=== PATIENT | male | born 1945 | race Caucasian/White ===

== ENCOUNTER → 2022-03-29 09:26 | Outpatient (CLI) | payer MEDICARE, SELFPAY ==
[2022-03-29 19:52] LABS: Alanine Aminotransferase 38 U/L (12-78); Albumin Level 4.8 g/dl (3.5-5.0); Albumin/Globulin Ratio 1.7 (1.1-1.8); Alkaline Phosphatase 112 U/L (38-126); Anion Gap 2.5 mEq/L (5-15); Aspartate Amino Transferase 38 U/L (17-59); Bilirubin,Total 0.8 mg/dl (0.2-1.3); Blood Urea Nitrogen 14 mg/dl (9-20); Calcium 9.7 mg/dl (8.4-10.2); Carbon Dioxide 28 mmol/L (22.0-30.0); Chloride 103 mmol/L (98-107); Chol/HDL Ratio 5.7 (1-3.5); Cholesterol 222 mg/dl (140-200); Estimated Glomerular Filt Rate 73 ml/min (>60); GFR (African American) 88 ML/MIN (>60); Globulin 2.8 g/dL (1.3-3.2); Glucose 104 mg/dl (74-100); HDL Cholesterol 39 mg/dl (40-60); Potassium 4.5 mmoL/L (3.5-5.1); Sodium 129 mmol/L (136-145); Total Protein,Serum 7.6 g/dl (6.3-8.2); Triglycerides 177 mg/dl (30-150); VLDL Cholesterol 35 mg/dL (0-40)
[2022-03-29 20:03] LABS: Direct LDL Cholesterol 148.73 mg/dL (100-129)
[2022-03-29 20:24] LABS: Prostate Specific Ag, Diagnost 10.8 ng/ml (0.0-4.0)
== END ==
PROVIDERS: PCP Family Medicine; Visit Provider Family Medicine
DX: N52.9 Male erectile dysfunction, unspecified (principal); Z12.5 Encounter for screening for malignant neoplasm of prostate; Z79.899 Other long term (current) drug therapy; R97.20 Elevated prostate specific antigen [PSA]
CPT/HCPCS: 80053; 80061; 84153

== ENCOUNTER → 2023-03-29 23:22 | Outpatient (CLI) | payer MEDICARE, SELFPAY ==
[2023-03-29 18:40] LABS: Basophils % 0.3 % (0.1-2.0); Eosinophils # 0.2 K/mm3 (0.0-0.4); Eosinophils % 3.1 % (0.1-12.0); Hematocrit 47.4 % (42.0-52.0); Hemoglobin 15.8 g/dL (14.1-18.0); Lymphocytes # 1.9 K/mm3 (0.7-4.5); Lymphocytes % 39.1 % (10-50); Mean Corpuscular HGB Conc 33.4 g/dL (31.8-35.4); Mean Corpuscular Hemoglobin 32.9 pg (27.0-31.2); Mean Corpuscular Volume 98.6 fl (80-94); Mean Platelet Volume 9.2 fl (7.4-10.4); Monocytes # 0.3 K/mm3 (0.1-1.0); Monocytes % 6.2 % (1.7-9.3); Neutrophils # 2.5 K/mm3 (1.8-7.8); Neutrophils % 51.3 % (37.0-80.0); Platelet Count 193 K/mm3 (142-424); Red Cell Distribution Width 12.9 % (11.5-17.5); White Blood Count 4.9 K/mm3 (4.8-10.8)
[2023-03-29 18:51] LABS: Alanine Aminotransferase 34 U/L (12-78); Albumin Level 4.9 g/dl (3.5-5.0); Albumin/Globulin Ratio 1.6 (1.1-1.8); Alkaline Phosphatase 78 U/L (38-126); Anion Gap 13.8 mEq/L (5-15); Aspartate Amino Transferase 37 U/L (17-59); Bilirubin,Total 0.7 mg/dl (0.2-1.3); Blood Urea Nitrogen 17 mg/dl (9-20); Calcium 9.1 mg/dl (8.4-10.2); Carbon Dioxide 27 mmol/L (22.0-30.0); Chloride 102 mmol/L (98-107); Chol/HDL Ratio 6.2 (1-3.5); Cholesterol 255 mg/dl (140-200); Estimated Glomerular Filt Rate 73 ml/min (>60); GFR (African American) 88 ML/MIN (>60); Globulin 3.1 g/dL (1.3-3.2); Glucose 104 mg/dl (74-100); HDL Cholesterol 41 mg/dl (40-60); Potassium 4.8 mmoL/L (3.5-5.1); Sodium 138 mmol/L (136-145); Triglycerides 209 mg/dl (30-150); VLDL Cholesterol 42 mg/dL (0-40)
[2023-03-29 19:02] LABS: Direct LDL Cholesterol 159.49 mg/dL (100-129)
[2023-03-29 19:13] LABS: 25-OH Vitamin D, Total 69.4 ng/mL (30-100)
[2023-03-29 19:24] LABS: Thyroid Stimulating Hormone 2.68 uIU/mL (0.465-4.68)
[2023-03-29 19:42] LABS: Vitamin B12 526 pg/mL (239-931)
[2023-03-29 19:52] LABS: Hemoglobin A1C 5.6 % (4.0-6.0)
== END ==
PROVIDERS: PCP Nurse Practitioner; Visit Provider Nurse Practitioner
DX: N52.9 Male erectile dysfunction, unspecified (principal); E78.5 Hyperlipidemia, unspecified; E55.9 Vitamin D deficiency, unspecified; C61 Malignant neoplasm of prostate; Z79.899 Other long term (current) drug therapy
CPT/HCPCS: 80053; 80061; 82306; 82607; 83036; 84443; 85025

== ENCOUNTER 2023-05-25 10:26 | Outpatient (CLI) | payer MEDICARE, SELFPAY | END 2023-05-25 23:59 | LOC: LAB.DROPOF 05-27 10:27 | PROVIDERS: PCP Nurse Practitioner; Visit Provider Nurse Practitioner | DX: Z01.818 Encounter for other preprocedural examination (principal) | CPT/HCPCS: 80048; 85025 ==

== ENCOUNTER 2023-05-25 16:58 | Outpatient (CLI) | payer MEDICARE, SELFPAY ==
--- NOTE | 2023-05-25 17:13 | ECG_ITS ---
APPROVED REPORT Exam: Resting ECG HR:61 bpm ECG Measurements Heart Rate 61 AXES CO 155 P 48 QRSd 113 QRS 45 QT 381 T 138 QTc 384 Conclusion SINUS RHYTHM MODERATE T-WAVE ABNORMALITY, CONSIDER LATERAL ISCHEMIA [-0.1+ mV T-WAVE IN I/aVL/V5/V6] ABNORMAL ECG UNCONFIRMED REPORT Electronically signed by : Kameron Bates MD 05/25/2023 22:36:12
[2023-05-25 18:26] LABS: Basophils % 0.5 % (0.1-2.0); Eosinophils # 0.1 K/mm3 (0.0-0.4); Eosinophils % 1.2 % (0.1-12.0); Hemoglobin 14.7 g/dL (14.1-18.0); Lymphocytes # 2.3 K/mm3 (0.7-4.5); Lymphocytes % 36.2 % (10-50); Mean Corpuscular HGB Conc 34.3 g/dL (31.8-35.4); Mean Corpuscular Hemoglobin 33.2 pg (27.0-31.2); Mean Corpuscular Volume 96.8 fl (80-94); Mean Platelet Volume 8.5 fl (7.4-10.4); Monocytes # 0.5 K/mm3 (0.1-1.0); Monocytes % 7.9 % (1.7-9.3); Neutrophils # 3.5 K/mm3 (1.8-7.8); Neutrophils % 54.2 % (37.0-80.0); Platelet Count 215 K/mm3 (142-424); Red Blood Count 4.44 M/mm3 (4.60-6.20); White Blood Count 6.4 K/mm3 (4.8-10.8)
[2023-05-25 18:36] LABS: Anion Gap 12.4 mEq/L (5-15); Blood Urea Nitrogen 19 mg/dl (9-20); Calcium 9.3 mg/dl (8.4-10.2); Carbon Dioxide 27 mmol/L (22.0-30.0); Chloride 102 mmol/L (98-107); Estimated Glomerular Filt Rate 65 ml/min (>60); GFR (African American) 79 ML/MIN (>60); Glucose 111 mg/dl (74-100); Potassium 4.4 mmoL/L (3.5-5.1); Sodium 137 mmol/L (136-145)
== END 2023-05-25 23:59 ==
LOC: RT 17:01
PROVIDERS: PCP Nurse Practitioner; Visit Provider Neurological Surgery
DX: Z01.818 Encounter for other preprocedural examination (principal)
CPT/HCPCS: 80048; 85025; 93005

== ENCOUNTER 2023-05-30 14:19 | Outpatient (CLI) | payer MEDICARE, SELFPAY ==
--- NOTE | 2023-05-30 14:20 | CA_ITS ---
APPROVED REPORT EXAM: Comprehensive 2D, Doppler, and color-flow Echocardiogram Lithographic Printing Machinist: Tracy Sotelo RT(R) Ht: 5 ft 11 in Wt: 232lbs BSA: 2.25 BP: 151/85 mmHg Indications: PRE OP clearance for back/spine surgery, AFIB, prior ablation, CONTRERAS 2D Dimensions Left Atrium 3.45 cm M: 3.0 - 4.0 LA Volume 26.00 mL LVOT 1.96 cm (M/F) 1.5-2.5 LA Volume Index 11.56 mL/m2 (M/F) 16-34 EF AP4 45.50 % GL Strain -11.1 % M-Mode Dimensions RVDd 1.87 cm (0.9-2.6) LVDd 3.74 cm (3.5-5.7) Ao Diam 3.50 cm (2.0-3.7) LVDs 2.67 cm (3.5-5.7) IVSd 1.02 cm (0.6-1.1) PWd 0.98 cm (0.6-1.1) EF (Teich) 55.90% FS 28.60% EDV (Teich) 59.60 mL ESV (Teich) 26.30 mL LV Diastology E Decel Time 247 (160-240 msec) E/A Ratio 0.7 Mitral Valve MV E Max Markell. 67.0 (40-130 cm/s) MV A Velocity 102.0 (40-130 cm/s) E/A Ratio 0.65 MV Decel. Time 247 (160-240 ms) Left Ventricle The left ventricle is normal size. The left ventricular systolic function is normal. The left ventricular ejection fraction is within the normal range. There is normal left ventricular wall thickness. There is normal LV segmental wall motion. The left ventricular diastolic function is normal. LVEF is 55%. Right Ventricle The right ventricle is normal size. The right ventricular systolic function is normal. Atria The left atrium size is normal. The right atrium size is normal. There is no Doppler evidence of interatrial shunt. Aortic Valve The aortic valve is mildly thickened. Aortic sclerosis is present, but no evidence of aortic stenosis. Trace aortic regurgitation. Mitral Valve The mitral valve leaflets are mildly thickened. Trace mitral regurgitation. Tricuspid Valve The tricuspid valve leaflets are thin and pliable. Trace tricuspid regurgitation. There is insufficient TR jet to estimate RVSP. Pulmonic Valve The pulmonary valve is normal in structure. Trace pulmonic regurgitation. Great Vessels The aortic root is normal in size. The ascending aorta is not well-visualized. The IVC is not well-visualized. Pericardium There is no pericardial effusion. Other Information Study Quality: Technically Difficult Conclusion Technically difficult study due to poor acoustic windows. Normal biventricular systolic function. No significant valvular stenosis or regurgitation. Electronically signed by : Kathy Bruce MD 05/30/2023 22:40:21
== END 2023-05-30 23:59 ==
LOC: RT 14:20
PROVIDERS: PCP Nurse Practitioner; Visit Provider Physician Assistant
DX: R94.31 Abnormal electrocardiogram [ECG] [EKG] (principal); Z01.818 Encounter for other preprocedural examination
CPT/HCPCS: 93306

== ENCOUNTER 2023-06-27 18:22 | Outpatient (CLI) | payer MEDICARE, SELFPAY ==
[2023-06-27 18:06] LABS: Alanine Aminotransferase 29 U/L (12-78); Albumin Level 4.5 g/dl (3.5-5.0); Albumin/Globulin Ratio 1.7 (1.1-1.8); Alkaline Phosphatase 89 U/L (38-126); Anion Gap 12.7 mEq/L (5-15); Aspartate Amino Transferase 34 U/L (17-59); Bilirubin,Total 0.8 mg/dl (0.2-1.3); Blood Urea Nitrogen 12 mg/dl (9-20); Calcium 9.2 mg/dl (8.4-10.2); Carbon Dioxide 27 mmol/L (22.0-30.0); Chloride 103 mmol/L (98-107); Chol/HDL Ratio 7.2 (1-3.5); Cholesterol 275 mg/dl (140-200); Estimated Glomerular Filt Rate 82 ml/min (>60); GFR (African American) 100 ML/MIN (>60); Globulin 2.6 g/dL (1.3-3.2); Glucose 100 mg/dl (74-100); HDL Cholesterol 38 mg/dl (40-60); Potassium 4.7 mmoL/L (3.5-5.1); Sodium 138 mmol/L (136-145); Total Protein,Serum 7.1 g/dl (6.3-8.2); Triglycerides 187 mg/dl (30-150); VLDL Cholesterol 37 mg/dL (0-40)
[2023-06-27 18:17] LABS: Direct LDL Cholesterol 169.58 mg/dL (100-129)
== END 2023-06-27 23:59 ==
LOC: LAB.DROPOF 18:22
PROVIDERS: PCP Nurse Practitioner; Visit Provider Nurse Practitioner
DX: E78.5 Hyperlipidemia, unspecified (principal); Z79.899 Other long term (current) drug therapy
CPT/HCPCS: 80053; 80061

== ENCOUNTER 2023-11-21 16:15 | Outpatient (CLI) | payer MEDICARE, SELFPAY | END 2023-11-21 23:59 | disposition home or self-care (01) | LOC: LAB.DROPOF 11-22 16:15 | PROVIDERS: PCP Nurse Practitioner; Visit Provider Nurse Practitioner | DX: L02.212 Cutaneous abscess of back [any part, except buttock and flank] (principal); B95.61 Methicillin susceptible Staphylococcus aureus infection as the cause of diseases classified elsewhere | CPT/HCPCS: 87070; 87077; 87186; 87205 ==

== ENCOUNTER 2024-07-03 20:11 | Outpatient (CLI) | payer MEDICARE, SELFPAY ==
[2024-07-03 21:51] LABS: Basophils % 0.2 % (0.1-2.0); Eosinophils # 0.2 K/mm3 (0.0-0.4); Eosinophils % 3.1 % (0.1-12.0); Lymphocytes # 1.7 K/mm3 (0.7-4.5); Lymphocytes % 32.9 % (10-50); Mean Corpuscular HGB Conc 32.6 g/dL (31.8-35.4); Mean Corpuscular Hemoglobin 31.7 pg (27.0-31.2); Mean Corpuscular Volume 97.3 fl (80-94); Mean Platelet Volume 10.3 fl (7.4-10.4); Monocytes # 0.4 K/mm3 (0.1-1.0); Monocytes % 8.4 % (1.7-9.3); Neutrophils # 2.8 K/mm3 (1.8-7.8); Platelet Count 212 K/mm3 (142-424); Red Blood Count 4.42 M/mm3 (4.60-6.20); Red Cell Distribution Width 12.9 % (11.5-17.5); White Blood Count 5.1 K/mm3 (4.8-10.8)
[2024-07-03 22:57] LABS: Albumin Level 4.4 g/dl (3.5-5.0); Chloride 102 mmol/L (98-107); Sodium 134 mmol/L (136-145)
[2024-07-03 23:00] LABS: Alanine Aminotransferase 24 U/L (12-78); Albumin/Globulin Ratio 1.8 (1.1-1.8); Aspartate Amino Transferase 35 U/L (17-59); Blood Urea Nitrogen 23 mg/dl (9-20); Carbon Dioxide 26 mmol/L (22.0-30.0); Estimated Glomerular Filt Rate 82 ml/min (>60); GFR (African American) 99 ML/MIN (>60); Globulin 2.5 g/dL (1.3-3.2); Total Protein,Serum 6.9 g/dl (6.3-8.2)
[2024-07-03 23:01] LABS: Alkaline Phosphatase 72 U/L (38-126); Bilirubin,Total 0.7 mg/dl (0.2-1.3); Chol/HDL Ratio 4.7 (1-3.5); Cholesterol 188 mg/dl (140-200); Glucose 102 mg/dl (74-100); HDL Cholesterol 40 mg/dl (40-60); Triglycerides 155 mg/dl (30-150); VLDL Cholesterol 31 mg/dL (0-40)
[2024-07-03 23:12] LABS: Direct LDL Cholesterol 103.03 mg/dL (100-129)
[2024-07-04 03:05] LABS: 25-OH Vitamin D, Total 27.2 ng/mL (30-100)
[2024-07-04 03:33] LABS: Vitamin B12 266 pg/mL (239-931)
== END 2024-07-03 23:59 | disposition home or self-care (01) ==
LOC: LAB 20:12
PROVIDERS: PCP Nurse Practitioner; Visit Provider Nurse Practitioner
DX: E78.5 Hyperlipidemia, unspecified (principal); E55.9 Vitamin D deficiency, unspecified; C61 Malignant neoplasm of prostate; K63.5 Polyp of colon; N52.9 Male erectile dysfunction, unspecified; M54.50 Low back pain, unspecified; G89.29 Other chronic pain; Z68.32 Body mass index [BMI] 32.0-32.9, adult; E66.9 Obesity, unspecified
CPT/HCPCS: 80053; 80061; 82306; 82607; 84443; 85025

== ENCOUNTER 2024-11-28 13:32 | Outpatient (CLI) | payer MEDICARE, SELFPAY ==
--- OUTSIDE RECORDS SUMMARY | 2024-05-29 06:15 | XMS_ITS | Encounter Summary ---
[facility] [address] [place] [address] Care Team Providers Care Pen Rider Name Role Phone DonaldAdinalex Mcbride APRN Primary Care Provider [phone] Encounter Details Date Type Department Care Team (Late st Contact Info) Description 05/29/2024 5:15 AM EST Hospital Encounter [facility] [place] [address] [facility] [address] [place] [address] Social History Tobacco Use Types [...] Care Team (Late st Contact Info) Description 12/20/2024 3:00 PM EDT Office Visit [facility] [address] [place] [address] [place] [address] Joel Castaneda MD [address] [place] [address] documented as of this encounter Visit Diagnoses Not on filedocumented in this encounter Care Teams Pen Rider Relationship Specialty Start Date End Date Terrie Bennett APRN [address] [place] [address] PCP - General Nurse Practitioner 03/28/24 documented as of this encounter
--- OUTSIDE RECORDS SUMMARY | 2024-08-10 05:40 | XMS_ITS | Encounter Summary ---
[facility] [address] [place] [address] Care Team Providers Care Metal Casket Assembler Name Role Phone DonaldTerrie Reed SORTO Primary Care Provider [phone] Encounter Details Date Type Department Care Team (Late st Contact Info) Description 08/10/2024 5:40 AM EDT Hospital Encounter [facility] [place] [address] [place] [address] [place] [address] Social History Tobacco Use Types [...] PM EDT Office Visit [facility] [address] [place] [address] [place] [address] Joel Castaneda MD [address] [place] [address] documented as of this encounter Visit Diagnoses Not on filedocumented in this encounter Care Teams Metal Casket Assembler Relationship Specialty Start Date End Date Terrie Bennett APRN [address] [place] [address] PCP - General Nurse Practitioner 03/28/24 documented as of this encounter
--- NOTE | 2024-11-28 13:34 | XR_ITS ---
FINAL REPORT TECHNIQUE: Chest PA & Lateral CLINICAL HISTORY: SOBOE, RLL rales, pneumonia COMPARISON: None FINDINGS: 2 views of the chest were performed. The heart size is mildly enlarged. The mediastinum is within normal limits. The lungs are underinflated. There is crowding of markings at the lung bases. No definite infiltrate or effusion identified. There is no pneumothorax. The bony thorax appears intact. IMPRESSION: No definite infiltrate or effusion. Reviewed, Interpreted and Dictated by jC Brown MD Transcribed by Mandi Jimenez Authenticated and [facility]
--- OUTSIDE RECORDS SUMMARY | 2024-11-28 13:36 | XMS_ITS | Clinical Summary ---
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 (SNOMED CT) Active Zack Sloan MD Prolapsed lumbar intervertebral disc PREOP EXAM [id number] (SNOMED CT) Active Batsheva Boyle MA Pre-surgery evaluation Medications Medication Instructions Start Date Stop Date Generic Name [facility] Provider OXYCODONE-ACETAMIN OPHEN 5-325 MG TABS Take 1-2 tablet by mouth every four to six hours as needed for pain Take no more than 6 tabs/day oxycodone-acetami nophen [id number] Zack Sloan MD TAMSULOSIN HCL 0.4 MG CAPS tamsulosin [id number] Batsheva Boyle MA PREDNISONE 20 MG TABS prednisone [id number] Batsheva Boyle MA CYCLOBENZAPRINE HCL 10 MG TABS cyclobenzaprine [id number] Chandrakant Boyle MA MELOXICAM 15 MG TABS meloxicam [id number] Batsheva Boyle MA OXYBUTYNIN CHLORIDE ER 10 MG [id number] oxybutynin chloride [id number] Batsheva Boyle MA Medications Administered No information available. Allergies, Adverse Reactions, Alerts Observed no known allergies at Results No information available. Plan of Care Type Date Detail Pending order CBC Pending order Renal functional panel with BUN Pending order EKG Procedures Code Procedure Name Date Entry Date 55612 Evaluation - Low 46774 Therapeutic Activities 06/15 Vital Signs Date Name Value Unit Description BMI (Body Mass Index) 32.77 kg/m2 Bod y Mass Index (Ratio) Height 71 [in_us] height E&M Weight Measured 235 [lb_av] weight E& M Weight Measured 235 [lb_av] weight E& M BP Diastolic 92 mm[Hg] blood pressu re, diastolic BP Systolic 149 mm[Hg] blood pressur e, systolic Body Temperature 97.2 [degF] temperat ure E&M Heart Rate 80 /min pulse rate Respiratory Rate 16 /min respirat ory rate E&M Immunizations No information available. Advance Directives No information available.
--- OUTSIDE RECORDS SUMMARY | 2024-11-28 13:36 | XMS_ITS | Clinical Summary ---
Author Organization [facility] Address [address] [place] [address] Phone Care Team Providers Care Fence Installer Foreman Name Role Phone Jimmie June Primary Care Provider [phone] Allergies No known active allergies Medications cetirizine HCl (ZYRTEC ORAL) Take by mouth. A ctive aspirin 81 mg Oral Tablet, Chewable Take by mouth daily. Active tamsulosin (FLOMAX) 0.4 mg Oral Capsule, Sust. Release 24 hr Take 1 Cap by mouth nightly. 30 Cap 2 8 Active Additional Information Patient not taking.Reason: Other, Reported on 05/04/2023 oxyCODONE-aceta minophen (PERCOCET) 5-325 mg Oral Tablet Take 1 Tablet by mouth every 6 hours as needed for Pain. Active docusate sodium (COLACE) 100 mg Oral Capsule Take by mouth daily as needed for Constipation. Active magnesium oxide (MAG-OX) 400 mg (241.3 mg magnesium) Oral Tablet Take by mouth daily. Active cholecalciferol , vitamin D3, 10 mcg (400 unit) Oral Tablet Take 1 Tablet by mouth daily. Active methylcellulose (CITRUCEL) 500 mg Oral Tablet Take 500 mg by mouth 2 times daily. Active methylPREDNISol one (MEDROL, SIMON,) 4 mg Oral Tablets, Dose PackIndications :Foot pain, left Take as directed. 1 Each 2 Active Additional Information Patient not taking.Reason: Therapy Completed, Reported on 05/04/2023 diclofenac (VOLTAREN) 1 % Top GelIndications: Plantar fasciitis,Foot pain, left,Pain aggravated by walking Apply 2 g topically 2 times daily. 100 g 3 2 Active zinc sulfate (ZINCATE) 50 mg zinc (220 mg) Oral Capsule Take 220 mg by mouth 3 times daily. 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 Needs outpatient follow up with vascular Surgical History Surgery Date Site/Laterality Comments NOSE SURGERY 04/25/1987 - 04/24/1988 DIVIATED [facility]PT[facility] CARDIAC SURGERY Ablation URETEROSCOPY 10/08/2017 Left CYSTOSCOPY, LEFT URETEROSCOPY, STONE MANIPULATION WITH EXTRACTION OF STONE, STENT INSERTION LEFT URETER; Surgeon: Migel Lundberg MD; Location: [facility] OR; Service: Urology Medical devices from this surgery are in the Medical Devices section. Medical History Medical History Date Comments Cardiac dysrhythmia past hx of a -fib, ablation 1999 Chronic kidney disease Family History Medical History Relation Name Comments Heart Disease Mother Relation Name Status Comments Mother Social History Tobacco Use Types Packs/Day Years Used Date Smoking Tobacco: Never Smokeless Tobacco: Never Alcohol Use Standard Drinks/Week Comments No 0 (1 standard drink = 0.6 oz pur e alcohol) Sex and Gender Information Value Date Recorded Sex Assigned at Not on file Legal Sex Male 3:09 AM EDT Gender Identity Not on file Sexual Orientation Not on file Obstetrics History Last Filed Vital Signs Vital Sign Reading Time Taken Comments Blood Pressure 132/82 05/04/2023 10:01 AM EST Pulse 83 05/04/2023 10:01 AM EST Temperature 36.4 C (97.5 F) 05/04/2023 10:01 AM EST Respiratory Rate 16 03/16/2022 10:07 AM EST Oxygen Saturation 95% 05/04/2023 10:01 AM EST Inhaled Oxygen Concentration - - Weight 108 kg (238 lb) 03/22/2022 8:39 AM EST Height 177.8 cm (5' 10 ) 03/22/2022 8:39 AM EST Body Mass Index 34.15 03/22/2022 8:39 AM EST Plan of Treatment Health Maintenance Due Date Last Done Comments Wellness Exam Medicare 11/20/1948 Zoster (2 of 3) 04/12/2019 02/15/2019 RSV or 60+ (1 - 1-dose 75+ series) 11/20/2022 COVID-19 Vaccine ( - season) 2023 01/25/2023, 02/08/2022, 03/02/2021, Additional history exists Influenza Vaccine (#1) 2024 , 02/08/2022, 01/19/2021, Additional history exists DTaP/TDaP/Td (2 - Td or Tdap) 12/20/2026 12/20/2016, 06/29/1996 Hepatitis C Screening Completed 10/02/2017 Pneumococcal Vaccine 50+ Completed 01/23/2018, 11/24 Colon Cancer Screening Discontinued Colonoscopy Discontinued 12/02/2021 Cologuard Discontinued FIT Discontinued Hepatitis B Vaccine Aged Out No longe r eligible based on patient's age to complete this topic Meningococcal B Vaccine Aged Out No l onger eligible based on patient's age to complete this topic Sigmoidoscopy Discontinued Virtual Colonography Discontinued Medical Devices Implanted Type Area Supervisor Drapery Hanging Device Identifier Shelf Expiration Date Model / Serial / Lot Stent Ureteral Contour 6 X 26 #[id number] - [id number] Implanted:Qty: 1 on 10/08/2017 by Migel Lundberg MD at [facility] Stent Left: Ureter [employer]:MICROVASIVE: UROLOGY 07/26/2020 [id number] / / [id number] Procedures Procedure Name Priority Date/Time Associated Diagnosis Comments GMED COLONOSCOPY Routine 12/02/2021 9:00 AM EDT Screening for colon cancer HCV ANTIBODY SCREEN W/ REFLEX Routine 10/02/2017 12:54 PM EDT from Last 3 Months or Most Recently Relevant to Health Maintenance Results * GMED COLONOSCOPY (12/02/2021 9:00 AM EDT) 12/02/2021 9:00 AM EDT Impressions [facility] - 12/02/2021 9:54 AM EDT Plan: This section is an excerpt of the full report. us Ranjeet Rodriguez MD GI PROCEDURE ORDERABLES Fin al Result [facility] [address] [place] [address] * HEPATITIS C ANTIBODY - SCREENING (10/02/2017 12:54 PM EDT) Hep C Ab Non-Reactiv e Non-Reacti ve 10/02/2017 1:52 PM EDT [facility] Blood VENOUS BLOOD / Unknown Venipuncture / Unknown 10/02/2017 12:54 PM EDT 10/02/2017 12:59 PM EDT us Prabhakar Jaimes MD HEMATOLOGY ORDERABLES Final Re sult [facility] [address] [facility] [address] [place] [address] from Last 3 Months or Most Recently Relevant to Health Maintenance Insurance [employer] MEDICARE PPO MR [employer] MEDICARE PPO MR [employer] MEDICARE PPO MR [employer] MEDICARE PPO MR Advance Directives For more information, please contact: [phone] Documents on File Type Date Recorded Patient Vacuum Bottle Assembler Expl anation Power of Fitter Armament 10/11/2017 4:57 PM 10/07 Advance Directives/DNR 10/11/2017 4:57 PM 10/07/2017 * Full Code (Latest Code Status on File) Date Activated Date Inactivated Comments 10/02/2017 10:32 AM 10/03/2017 5:13 PM * Full Code Date Activated Date Inactivated Comments 10/02/2017 10:32 AM 10/02/2017 10:32 AM Care Teams Fence Installer Foreman Relationship Specialty Start Date End Date Jimmie June [address] [place] [address] [address] GRETCHEN THOMAS [address] PCP - General Family Medicine 10/07/17
--- OUTSIDE RECORDS SUMMARY | 2024-11-28 13:36 | XMS_ITS | Clinical Summary ---
[facility] Organization [facility] Address [address] [place] [address] Care Team Providers Care Hose Handler Name Role Phone Terrie Bennett APRN Primary Care Provider [phone] Allergies No known active allergies Medications Loratadine 10 MG capsule Take by mouth. Acti ve tamsulosin (FLOMAX) 0.4 MG capsule 24 hr capsule Take 1 capsule by mouth Every Night. 30 capsule 11 3 Active Additional Information Patient taking differently:1 capsule Oral2 Times Daily, Informant: Self, Reported on 03/28/2024 rosuvastatin (CRESTOR) 5 MG tablet Take 1 tablet by mouth Daily. 4 Active Sildenafil Citrate (VIAGRA PO) Active multivitamin with minerals (MULTIVITAMIN ADULTS PO) Take 1 tablet by mouth Daily. Active Inulin (FIBER CHOICE PO) Take by mouth. Acti ve tadalafil (Cialis) 20 MG tablet Take 1 tablet by mouth Daily As Needed for Erectile Dysfunction. 30 tablet 5 5 Active relugolix (ORGOVYX) 120 MG tablet tablet Take 1 tablet by mouth Daily. Take 3 tablets on day one then 1 tablet daily 30 tablet 6 5 Active Active Problems Problem Noted Date Diagnosed Date Secondary adenocarcinoma of lymph node 5 Prostate cancer 06/28/2022 Cancer Staging:Clinical stage from 05/05/2022:Stage IIC(cT2c, cN0, cM0, PSA: 10.8, Grade Group: 3) - Signed by Joel Castaneda MD on 06/28/2022 Encounters Date Type Department Care Team Description 09/10/2024 Telephone [facility] [address] [place] [phone] Nichol Her, DIPAK 09/07/2024 Telephone [facility] [address] [place] [phone] Nichol Her, DIPAK 09/04/2024 Documentation [facility] [address] [place] [address] Joel Castaneda MD 09/04/2024 Telephone [facility] [address] [place] [address] Nichol Her, DIPAK 09/03/2024 Telephone [facility] [address] [place] [address] Nichol Her, DIPAK 08/31/2024 2:30 PM EDT Clinical Support [facility] [address] [address] Joel Castaneda MD Secondary adenocarcinoma of lymph node (Primary Dx); Prostate cancer 08/31/2024 6:10 AM EDT - 08/31/2024 11:59 PM EDT Hospital Encounter [facility] [address] [place] [phone] Discharge Disposition: Home or Self Care 08/31/2024 Telephone [facility] [address] [place] [address] Lori Fernandes, DIPAK 08/31/2024 Documentation [facility] [place] [address] Joel Castaneda MD 08/30/2024 8:14 AM EDT - 08/30/2024 11:59 PM EDT Hospital Encounter [facility] [address] [place] [address] Discharge Disposition: Home or Self Care 08/30/2024 8:13 AM EDT - 08/30/2024 11:59 PM EDT Hospital Encounter [facility] [address] [place] [address] Rising PSA following treatment for malignant neoplasm of prostate; Prostate cancer Discharge Disposition: Home or Self Care 08/30/2024 Travel from Last 3 Months Family History Medical History Relation Name Comments Heart attack Mother Diabetes Sister Hypertension Sister Relation Name Status Comments Father Mother Sister Alive Social History Tobacco Use Types Packs/Day Years Used Date Smoking Tobacco: Never Smokeless Tobacco: Never Tobacco Cessation:Counseling Given: Not Answered Alcohol Use Standard Drinks/Week Comments Never 0 [...] on file Sexual Orientation Not on file Last Filed Vital Signs Vital Sign Reading Time Taken Comments Blood Pressure 163/92 03/28/2024 11:09 AM EST Pulse 73 03/28/2024 11:09 AM EST Temperature 36.3 C (97.3 F) 03/28/2024 11:09 AM EST Respiratory Rate 20 03/28/2024 11:09 AM EST Oxygen Saturation 96% 03/28/2024 11:09 AM EST Inhaled Oxygen Concentration - - Weight 107 kg (236 lb) 03/28/2024 11:09 AM EST Height 180.3 cm (5' 11 ) 04/15/2023 10:12 AM EST Body Mass Index 32.92 04/15/2023 10:12 AM EST Plan of Treatment Upcoming Encounters Date Type Department Care Team (Late st Contact Info) Description 12/20/2024 3:00 PM EDT Office Visit [facility] [address] [facility] [address] [place] [phone] Joel Castaneda MD [address] [place] [address] Health Maintenance Due Date Last Done Comments ZOSTER VACCINE (1 of 2) 04/12/2019 02/15/2019 ANNUAL WELLNESS VISIT 06/25/2022 RSV Vaccine - Adults (1 - 1- dose 75+ series) 11/20/2022 COVID-19 Vaccine (6 - Modern a risk season) 2024 01/31/2024, 01/25/2023, 02/08/2022, Additional history exists INFLUENZA VACCINE 01/23/2025 01/31/2024, , 02/08/2022, Additional history exists TDAP/TD VACCINES (3 - Td or Tdap) 12/20/2026 017, 06/29/1996 HEPATITIS C SCREENING Completed 10/02/2017 Pneumococcal Vaccine 50+ Completed 01/23/2018, 11/24 COLONOSCOPY Discontinued 12/02/2021, 04/25/2021 COLORECTAL CANCER SCREENING Discontinued COLOGUARD Discontinued COLON CANCER SCREENING 5 CB R SIGMOIDOSCOPY Discontinued CT COLONOGRAPHY Discontinued FECAL OCCULT BLOOD TEST Discontinued FIT Testing (1 year) Discontinued Procedures Procedure Name Priority Date/Time Associated Diagnosis Comments NM PET/CT SKULL BASE TO MID THIGH STAT 08/30/2024 10:09 AM EDT Rising PSA following treatment for malignant neoplasm of prostate Prostate cancer from Last 3 Months Results * NM PET/CT Skull Base to Mid Thigh (08/30/2024 10:09 AM EDT) Anatomical Region Laterality Modality Head and Neck, Spine, Abdome n, Chest, Pelvis, Lower Leg, Thigh N/A Nuclear Medicine 08/30/2024 3:31 PM EDT Impressions 08/30/2024 3:43 PM EDT Impression: 1. Multiple mildly enlarged lymph nodes seen within the chest, abdomen, and pelvis which demonstrate increased activity consistent with metastatic disease. Electronically Signed: Rainer Kelley MD 08/30/2024 3:43 PM EDT Workstation ID: [id number] Narrative 08/30/2024 3:43 PM EDT Pilufolastat NM PET/CT SKULL BASE TO MID THIGH Date of Exam: 08/30/2024 8:53 AM EDT Indication: prostate cancer; rising PSA. Comparison: CT abdomen and pelvis 06/01/2022, MRI pelvis 08/04/2022 Technique: 4.43 mCi of [id number] was administered intravenously. PET imaging was obtained from the vertex to mid-thigh approximately 60 minutes after radiotracer injection. A low dose non contrast CT was obtained for attenuation correction and anatomic localization. Fused PET-CT and 3D MIP reconstructions were utilized for image interpretation. Findings: Head/neck: Physiologic activity seen within the lacrimal glands and salivary glands bilaterally. No pathologically enlarged cervical lymph nodes. No abnormal uptake within the cervical lymph nodes. CHEST: Abnormal uptake is seen within a right supraclavicular node which measures 12 x 9 mm in size seen on axial CT image 143. This has an SUV max of 11.1. Other enlarged hypermetabolic nodes are seen throughout the mediastinum including subcarinal node measuring 2.8 x 1.4 cm in size with maximum SUV of 18.67. No enlarged hilar or axillary nodes. No pleural effusion. There are coarse interstitial markings within the posterior lung bases which appear new from 06/01/2022. No abnormal uptake seen within the lungs. ABDOMEN: Unenhanced liver, pancreas, and spleen are within normal limits. Bilateral adrenal glands and kidneys appear within normal limits. No evidence of hydronephrosis. There is a prominent extrarenal pelvis of the left kidney. Abnormal uptake is seen in multiple small retroperitoneal nodes. For follow-up purposes the largest in the left para-aortic node is seen on CT axial image 328 measuring 1.6 x 0.7 cm in size with a maximum SUV of 12.3. The GI tract is unremarkable. No free fluid in the abdomen. Pelvis: Urinary bladder is within normal limits. There are multiple radiopaque fiduciary markers seen within the prostate gland. The GI tract is within normal limits. There are enlarged right common iliac nodes with the most anterior node measuring 1.5 x 1.3 cm in size with maximum SUV of 16.32 no definite left-sided iliac or inguinal nodes. No free intraperitoneal fluid. Bones: There are degenerative changes of the spine with ankylosis of the bilateral sacroiliac joints. No suspicious lytic or sclerotic bony metastatic disease. No abnormal uptake seen within the bony structures. Procedure Note Devon Kelley MD - 08/30/2024 Pilufolastat NM PET/CT SKULL BASE TO MID THIGH Date of Exam: 08/30/2024 8:53 AM EDT Indication: prostate cancer; rising PSA. Comparison: CT abdomen and pelvis 06/01/2022, MRI pelvis 08/04/2022 Technique: 4.43 mCi of [id number] was administered intravenously. PETimaging was obtained from the vertex to mid-thigh approximately 60 minutesafter radiotracer injection. A low dose non contrast CT was obtained forattenuation correction and anatomic localization. Fused PET-CT and 3D MIP reconstructions wereutilized for image interpretation. Findings: Head/neck: Physiologic activity seen within the lacrimal glands andsalivary glands bilaterally. No pathologically enlarged cervical lymphnodes. No abnormal uptake within the cervical lymph nodes. CHEST: Abnormal uptake is seen within a right supraclavicular node whichmeasures 12 x 9 mm in size seen on axial CT image 143. This has an SUV maxof 11.1. Other enlarged hypermetabolic nodes are seen throughout themediastinum including subcarinal node measuring 2.8 x 1.4 cm in size with maximum SUV of 18.67. No enlargedhilar or axillary nodes. No pleural effusion. There are coarse interstitial markings within the posterior lung baseswhich appear new from 06/01/2022. No abnormal uptake seen within thelungs. ABDOMEN: Unenhanced liver, pancreas, and spleen are within normal limits.Bilateral adrenal glands and kidneys appear within normal limits. Noevidence of hydronephrosis. There is a prominent extrarenal pelvis of theleft kidney. Abnormal uptake is seen in multiple small retroperitoneal nodes. Forfollow-up purposes the largest in the left para-aortic node is seen on CTaxial image 328 measuring 1.6 x 0.7 cm in size with a maximum SUV of 12.3.The GI tract is unremarkable. No free fluid in the abdomen. Pelvis: Urinary bladder is within normal limits. There are multipleradiopaque fiduciary markers seen within the prostate gland. The GI tractis within normal limits. There are enlarged right common iliac nodes with the most anterior nodemeasuring 1.5 x 1.3 cm in size with maximum SUV of 16.32 no definiteleft-sided iliac or inguinal nodes. No free intraperitoneal fluid. Bones: There are degenerative changes of the spine with ankylosis of thebilateral sacroiliac joints. No suspicious lytic or sclerotic bonymetastatic disease. No abnormal uptake seen within the bony structures. IMPRESSION: Impression: 1. Multiple mildly enlarged lymph nodes seen within the chest, abdomen,and pelvis which demonstrate increased activity consistent with metastaticdisease. Electronically Signed: Rainer Kelley MD 08/30/2024 3:43 PM EDT Workstation ID: [id number] Joel Castaneda MD [facility] ORDERABLES Final Resul t from Last 3 Months Insurance MEDICARE ADVANTAGE [facility] MEDICARE ADVANTAGE PPO Care Teams Hose Handler Relationship Specialty Start Date End Date Terrie Bennett APRN [address] [facility] [place], [place] [id number] PCP - General Nurse Practitioner 03/28/24
--- OUTSIDE RECORDS SUMMARY | 2024-11-28 13:36 | XMS_ITS ---
Author Organization [facility] Address [address] [place] [address] Care Team Providers Care Carbon Furnace Operator Helper Name Role Phone DonaldTerrie holt Reed SORTO Primary Care Provider [phone] Active Problems Problem Noted Date Diagnosed Date Secondary adenocarcinoma of lymph node Prostate cancer 06/28/2022 Cancer Staging:Clinical stage from 05/05/2022:Stage IIC(cT2c, cN0, cM0, PSA: 10.8, Grade Group: 3) - Signed by Joel Castaneda MD on 06/28/2022 Current Treatment and Therapy Plans No current plan information found. Past Treatment and Therapy Plans No past plan information found. Treatment Summaries Prostate cancer* Images from the original note were not included. Prostate Cancer Survivorship Plan General Information Patient name Gerald Dubon Date of 1945 Phone Email @[facility] Treatment Team Patient Care Team: Jace Wade MD as Consulting Physician (Urology) Joel Castaneda MD as Consulting Physician (Radiation Oncology) Ranjeet Rodriguez MD as Consulting Physician (Gastroenterology) Provider Phone numbers Care Team Provider: Jace Wade MD, ([phone]) Care Team Provider: Joel Castaneda MD, ([phone]) Care Team Provider: Ranjeet Rodriguez MD, ([phone]) Post Treatment Care Team Primary Care Physician Khurram Block MD [phone] [place] [address] Background Information Medical history Past Medical History: Prostate cancer Surgical history Past Surgical History: ATRIAL ABLATION SURGERY 2003 [facility] COLONOSCOPY KIDNEY STONE SURGERY NOSE SURGERY PROSTATE BIOPSY PROSTATE FIDUCIAL MARKER PLACEMENT VASECTOMY Tobacco use Social History Tobacco Use Smoking Status Never Smokeless Tobacco Never Family oncology history Cancer-related family history is not on file. Oncology Information Oncology/Hematology History Prostate cancer 05/05/2022 Cancer Staged Staging form: Prostate, AJCC 8th Edition - Clinical stage from 05/05/2022: Stage IIC (cT2c, cN0, cM0, PSA: 10.8, Grade Group: 3) - Signed by Joel Castaneda MD on 06/28/2022 06/28/2022 Initial Diagnosis Prostate cancer (HCC) 08/19/2022 - 08/25/2022 Radiation Radiation OncologyTreatment Course: Gerald Dubon received 3500 cGy in 5 fractions to prostate and seminal vesicles via Stereotactic Radiation Therapy - SRT. Complications during Therapy: No concerns stated Modification to Treatment Plan: No Modifications Lifetime Dose Tracking No doses have been documented on this patient for the following tracked chemicals: Doxorubicin, Epirubicin, Idarubicin, Daunorubicin, Mitoxantrone, Bleomycin, Mitomycin, Doxorubicin Liposomal [No matching plan found] Persistent Treatment-Associated Adverse Effects at Completion of Therapy It is important to recognize that not every person experiences the following adverse events after treatment. You may not have any of these issues, a few or many adverse effects. Experiences are highly variable. Please discuss any adverse effects of cancer treatment with your cancer care team. After Surgical Therapy No Surgery Performed After Chemotherapy N/A After Radiation Therapy After External Beam Radiation Therapy or Cyberknife Radiation therapy can cause early and late side effects. Early side effects are those that happen during or shortly after treatment and are usually gone within a few weeks after treatment ends. Late side effects may take months or years to develop. The most common early side effects are fatigue (feeling tired) and skin changes. Other early side effects are usually related to the area being treated. If you continue to have some skin problems after treatment ends, be gentle with the skin in the treatment area until all signs of irritation are gone and continue to care for your skin as your doctors and nurses have advised. If you continue to have fatigue, you may need to plan your activities to maximize energy, get extra rest while your bodyis still recovering and follow other instructions from your 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 terminal system operator effects of radiation therapy vary greatly depending on the areas included in the field ofradiation and the radiation techniques that were used. Normal tissue in the body that is close to the prostate such as the bowel, rectum and bladder may be exposed to some radiation during treatment. Exposure of the bowel to radiation may result in bowel changes such as diarrhea or frequent loose stools. Ulceration and bleeding may also occur. Any bright red blood or black, tarry stools or abnormal passage of stool should be reported to your doctor. Stay hydrated by drinking water and fluids with electrolytes. Chronic diarrhea may put you at risk for weight loss and malnutrition. Talk to yourdoctor or nurse - there may medications and special instructions that can help. There are also other specialists like gastroenterologists and dietitians who can help. If the lymph nodes were in the radiation field, there may be an increased risk of developing lymphedema. Lymphedema is a condition in which fluid collects and may cause swelling. Exposure of the bladder to radiation may result in bladder scarring and may increase the risk of urinary tract infections. Blood in the urine or signs of urinary tract infections such as pain in the bladder, groin, lower abdomen or lower back, frequent urination, bladder spasm, cloudy, dark and/or foul-smelling urine, frequent urge to urinate and fever should be reported to your doctor. Radiation to the pelvis may cause erectile dysfunction (inability to get and keep an erection firm enough for sexual penetration). If there was erectile dysfunction before treatment and if there are other risk factors for erectile dysfunction (such as advanced age), the risk may be higher. Each man???s situation is different. Medications to treat erectile dysfunction may be given. There are also other treatments and devices that can help. Having trouble with erections is a very personal concern. It???s important to communicate with your partner and to talk with your doctor or nurse about it. Treatments and referrals to other specialists may help. In rare cases, radiation therapy can increase the risk of a second cancer. Other N/A Care of your Venous Access Device No Venous Access Device currently in place General After Cancer Treatment It is not uncommon for cancer to impact other areas of your life such as relationships, work and mental health. If you develop financial concerns, resources are sometimes available to assist in theseareas. Depression and anxiety can present either during or after cancer diagnosis and treatment. Itis important to discuss with your physician any of these concerns so these resources can be made available to you. General Cancer Support & Resources [facility] [address], [address] [place] [address] Med Onc: Heading And Priming Operator Onc: Field Supervisor: Deyanira Covarrubias - Psychiatric Nurse Practitioner: Marisa Multani APRN - Kick It! (A free smoking cessation program) Financial Counselor and Contact Information: [facility] Financial Counseling [phone] Operations Support Manager Contact Information: Tami Fontaine - Local Cancer Support Group and Contact Information: [facility]: This support group is open to anyone that has been diagnosed with cancer of any type. Meets at 6:30pm on the last Tuesday of each month. Location: [facility]; [address] [place] [address]. For more information call Yolie Martinez @ . Prostate Cancer Support & Resources Local Resources [facility] Prostate Support Group: The mission of TOO is to provide hope and improve the lives of of those affected by prostate cancer through support, education, and advocacy/ awareness. The group meets the of each month at 6:30 p.m. [address] [facility], [address] [place], [place] [id number] Surveillance How Frequent? Medical Oncology visits 1 month, 6 months later, 1 year later (Dr. Castaneda) Lab tests PSA 3 months after CyberKnife completion, then every 6 months until PSA reaches target zaki value (PSA <0.5), then every 6-12 months (Dr. Wade) Imaging exams As clinically indicated Immunizations Influenza Herpes Zoster Pneumococcal Yearly Once As appropriate Tobacco Cessation The patient is not currently a tobacco user. Counseling given: Not Answered Monitor for ongoing toxicities: None Specified Call your doctor if you have any of these signs or symptoms New or worsening symptoms. Pain that is new, unrelieved or bothersome. Difficulty with your emotions, anxiety, and/or depression. Physical problems that affect your abilities in your daily life or those that are bothersome (for example, continued fatigue, trouble sleeping, sexual problems, or edema). Referrals provided There are no referral needs at this time. Self Care Plan Self Care Plan: What You Can Do to Stay Healthy after Treatment for Cancer Cancer treatments may increase your chance of developing other health problems years after you havecompleted treatment. The purpose of this self care plan is to inform you about what steps you can take to maintain good health after cancer treatment. Keep in mind that every person treated for cancer is different and that these recommendations are not intended to be a substitute for the advice of a doctor or other health care clinician. Please use these recommendations to talk with your health care provider about an appropriate follow up care plan for you. Surveillance for Your Cancer Recommendation Frequency Comments Cancer surveillance visit with medical provider that is focused on detecting signs of recurrence ofyour cancer. For additional information, visit www.livestrong.org or www.cancer.net/patient/Survivorship Frequency depends on type and stage of cancer you had. (If you had a higher risk cancer, you may be seen more often). Your doctor has provided you with a personalized cancer treatment summary and survivorship care plan. If you need another copy, ask your doctor. General Cancer Screening for Men Cancer screening tests are designed to find cancer or pre-cancerous areas before there are any symptoms and, generally, when treatments are most successful. Various organizations have developed guidelines for cancer screening for men. While these guidelines vary slightly between different organizations, they cover the same basic screening tests for prostate and colorectal cancers. In addition, during routine health examinations (at any age) your health care provider may also evaluate for cancers of the skin, mouth and thyroid. Not all screening tests are right for everyone. Your personal and family cancer history, and/or the presence of a known genetic predisposition, can affect which tests are right for you, and at what age you begin them. Therefore, you should discuss these with your health care provider. Your care plan will also include a section on follow up care foryour type of cancer, and these recommendations override the general screening recommendations for that particular type of cancer in the general population. The [place] [employer] (ACS) recommends these screening guidelines for men: Recommendation Frequency Comments Colon and Rectal Cancer Screening For more information see the ACS document Colorectal Cancer: Early Detection. www.cancer.org/ssLINK/qpnfzckhpl-wljuwa-sdprm-detection-lashaun Options for colon cancer screening can be divided into those that screen for both cancer and polyps, and those that just screen for cancer.Screening should begin at age 45 (unless you are considered high risk (see comments), using one of the following testing schedules: Tests that find polyps and cancer (Preferred over those that find cancer alone. If any of these tests are positive, a colonoscopy should be done.) Flexible sigmoidoscopy every five years, or Colonoscopy every 10 years, or Double-contrast barium enema every five years, or CT colonography (virtual colonoscopy) every five years Tests that primarily test for cancer Yearly fecal occult blood test (FOBT)*, or Yearly fecal immunochemical test (FIT) *, or Stool DNA test (sDNA), interval uncertain* * The multiple stool take-home test should be used. One test done by the doctor in the office is not adequate. A colonoscopy should be done if the test is positive. Talk with your doctor about your medical history, and what colorectal cancer screening test and schedule is best for you. Individuals at higher risk of colon cancer should have screening earlier and potentially more frequently. Those at higher risk of colon and rectal cancer: Individuals with a family history of colon or rectal cancer in a relative who was diagnosed before the age of 60 Individuals with a history of polyps Individuals with inflammatory bowel disease (Crohn's disease or ulcerative colitis) Individuals with a genetic predisposition to colon or rectal cancer, such as hereditary non-polyposis colon cancer (HNPCC) syndrome or familial adenomatous polyposis (FAP) syndrome Prostate Cancer Screening For more information, see the ACS Document Prostate Cancer Prevention and Early Detection: http://www.cancer.org/cancer/prostatecancer/moreinformation/prostatecancerearlyd etection/index Starting at age 50 (unless you are considered high risk ), men should talk to their doctor about the pros and cons of prostate cancer testing, and then decide if they want to be tested. Tests that can be used to detect for prostate cancer include Prostate-specific antigen (PSA) or digital rectal exam (JOSE ROBERTO). ndividuals are considered higher risk if they are and/or have a family history of prostate cancer. Those who are considered high risk should have this talk at age 40 or 45. Testicular Screening For more information, see the ACS Document Testicular Cancer Detection: http://www.cancer.org/cancer/testicularcancer/detailedguide/sdzgjvkszq-unajvc-dg tection Men of any age can develop testicular cancer; however, about half of all cases occur in men between the ages of20 and 34. A testicular self- exam is recommended monthly after a man has gone through puberty. In doing so, maame should look and feel for any hard lumps, rounded bumps, or any change in the size, shape, or consistency of his testicles. If something appears abnormal, see a health care provider for further evaluation. Sun Exposure and Skin Cancer Risk Skin cancer is the most commonly diagnosed type of cancer, and rates are on the rise. However, thisis one cancer that in most cases can be prevented or detected early. While you may hear that you need the sun to make vitamin D, in reality you only need a few minutes a day to do this. Exposure to ultraviolet (UV) rays, either by natural sunlight or tanning beds, can lead to skin cancer. In additio n, UV rays lead to other forms of skin damage, including wrinkles, loss of skin elasticity, dark patches (sometimes called age spots or liver spots), and pre- cancerous skin changes (such as dry, scaly, rough patches). Although dark- skinned people are less likely to develop skin cancer, they can anddo develop skin cancers, most often in areas that are not exposed to sun (on the soles of the feet,under nails, and genitals). You can do a lot to protect yourself from damaging UV rays and to detect skin cancer early. Start by practicing sun safety, including using a broad spectrum sunscreen (which protects against UVA and UVB rays) with an SPF of at least 30 every day, avoiding peak sun times (10 a.m. to 4 p.m., when therays are strongest) and wearing protective clothing such as hats, sunglasses and long- sleeved shirts. Examine your skin regularly so you become familiar with any moles or birthmarks. If a mole has changed in any way, you should have a health care provider examine the area. This includes a change in size, shape or color; the development of scaliness, bleeding, oozing, itchiness or pain; or the development of a sore that will not heal. If you have a lot of moles, it may be helpful to make note of moles using photographs or a mole map . For a guide to performing a skin exam, visit www.skincarephysicians.com/skincancernet/skin_examinations.html. Healthy Lifestyle For some cancer survivors, the experience is the motivation to making healthy lifestyle changes. Itmay seem insignificant, but these changes have been shown to reduce the risk of the cancer coming back or a new cancer developing. Below are some tips on adopting a healthier lifestyle. Maintaining ahealthy weight is important in cancer prevention, as is physical activity and eating a healthy diet. Strive to incorporate all three pieces of the puzzle: healthy weight, balanced diet and regular exercise. Recommendation Goal Comments Maintain a healthy weight. For more information, visit http://www.nhlbi.nih.gov/health/public/heart/obesity/lose_wt/index.htm www.win.niddk.nih.gov Call the [place] [employer] Talk to your health care team about what a healthy weight is for you, and take stepsto reach and maintain that weight. For many people reaching their ideal weight can be a challenge; however, losing even 5 to 10 poundscan lower blood pressure, blood sugar and cholesterol levels. Weigh yourself weekly to monitor for weight gain/loss Being overweight can increase your chance of your cancer coming back. Maintaining a healthy weight, physical activity and eating a healthy diet are all important in cancer prevention. Being overweight can increase your chance of having high blood pressure, high blood sugar and/or high cholesterol, which can lead to heart disease, diabetes and stroke. If you would like more information about your blood sugar, cholesterol or blood pressure, talk with your primary care provider. Eat a healthy diet, mostly from plant sources. For more information, visit http://www.choosemyplate.gov/food-groups/ Eat healthy, including plenty of fruits and vegetables daily. Drink more water, less soda and juice. Limit how much alcohol you drink (if you drink at all). Strive to have two- thirds of your plate be vegetables, fruits, whole grains and beans, while one- third or less should be an animal product. Choose fish and chicken and limit red meat and processed meats. Limit intake of alcohol to two drinks per day. Exercise. To learn more about recommendations for diet, activity and weight, visit AICR???s Guidelines for Survivors http://preventcancer.aicr.org/site/PageServer?pagename=patients_survivors_guidel reuben ACS Eat Healthy and Get Active www.cancer.org/Healthy/EatHealthyGetActive/index Experts recommend at least 30 minutes of kgyaxzsw-yf-geekixtt activity per day, five days a week. Research shows that exercise can help you control your weight, improve your energy level, and help you sleep at night. The dalal is to find a physical activity you enjoy such as walking, dancing or gardening and do it regularly. If you have been inactivefor a while, start out slowly. You can start out by exercising 10 minutes a day several days a week. If you feel dizzy, short of breath, or have chest pain during exercise, stop exercising and talk with your primary care doctor. Do not use tobacco in any form. For more information, visit http://www.cdc.gov/tobacco/campaign/tips/ If you use tobacco, quit as soon as possible. Smoking is the most preventable cause of in the [place] If you would like more information, ask your doctor or you can call a national hotline at 8(179)-QUIT-NOW. Have regular check-ups by a healthcare professional. For more information about healthy screening tests for men visit the U.S. Department of Health and Human Services. http://www.womenshealth.gov/zamubqohk-zirzx-kdj-vaccines/shddgcdmu-olemz-sjl-men / For more information about adult vaccinations visit the CDC: http://www.cdc.gov/vaccines/recs/schedules/adult-schedule.htm Keep up-to-date on general health screening tests, including cholesterol, blood pressure and glucose (blood sugar) levels. Get an annual influenza vaccine (flu shot). Get vaccinated with the pneumococcal vaccine, which prevents a type of pneumonia, and re-vaccinatedas determined by your health care team. Don???t forget dental and eye health! The [place] [employer] recommends adults have their eyes examined every two years until age 60, then annually. People who wear glasses or correctivelenses or are at high risk for eye problems (i.e., diabetics, family history of eye disease) shouldbe seen more frequently. The [place] [employer] recommends adults see their dentist at least once a year. No information on file. No information on file.
[2024-11-28 17:52] LABS: Hematocrit 37.6 % (42.0-52.0); Hemoglobin 12.8 g/dL (14.1-18.0); Immature Granulocytes % 0.2 %; Mean Corpuscular HGB Conc 34.0 g/dL (31.8-35.4); Mean Corpuscular Hemoglobin 31.9 pg (27.0-31.2); Mean Corpuscular Volume 93.8 fl (80-94); Nucleated Red Blood Cells % 0 %; Platelet Count 189 K/mm3 (142-424); Red Blood Count 4.01 M/mm3 (4.60-6.20); Red Cell Distribution Width-SD 42.2 fL; White Blood Count 4.4 K/mm3 (4.8-10.8)
[2024-11-28 20:05] LABS: Alanine Aminotransferase 27 U/L (12-78); Albumin Level 4.3 g/dl (3.5-5.0); Albumin/Globulin Ratio 1.8 (1.1-1.8); Alkaline Phosphatase 79 U/L (38-126); Anion Gap 10.2 mEq/L (5-15); Aspartate Amino Transferase 38 U/L (17-59); Bilirubin,Total 0.5 mg/dl (0.2-1.3); Blood Urea Nitrogen 14 mg/dl (9-20); Calcium 9.2 mg/dl (8.4-10.2); Carbon Dioxide 26 mmol/L (22.0-30.0); Chloride 105 mmol/L (98-107); Creatinine,Serum 0.70 mg/dl (0.66-1.25); Estimated Glomerular Filt Rate 109 ml/min (>60); GFR (African American) 132 ML/MIN (>60); Globulin 2.4 g/dL (1.3-3.2); Glucose 102 mg/dl (74-100); Potassium 4.2 mmoL/L (3.5-5.1); Sodium 137 mmol/L (136-145); Total Protein,Serum 6.7 g/dl (6.3-8.2)
[2024-11-28 20:13] LABS: NT Pro Brain Natriuretic Pep. 116 pg/mL (0-450)
== END 2024-11-28 23:59 | disposition home or self-care (01) ==
LOC: RAD 13:32
PROVIDERS: PCP Nurse Practitioner; Visit Provider Nurse Practitioner
DX: J18.9 Pneumonia, unspecified organism (principal); I51.7 Cardiomegaly
CPT/HCPCS: 71046; 80053; 83880; 85025

== ENCOUNTER 2025-01-28 10:16 | Outpatient (CLI) | payer MEDICARE, SELFPAY ==
--- OUTSIDE RECORDS SUMMARY | 2024-05-29 06:15 | XMS_ITS | Encounter Summary ---
Author Organization [facility] yste Address [address] [place] [address] Care Team Providers Care Slide Fastener Repairer Name Role Phone Terrie Bennett APRN Primary Care Provider [phone] Encounter Details Date Type Department Care Team (Late st Contact Info) Description 05/29/2024 5:15 AM EST Hospital Encounter [facility] [place] [address] [facility] [address] [place] [address] Social History Tobacco Use Types [...] [facility] [address] [place] [address] Joel Castaneda MD [address] [place] [address] documented as of this encounter Visit Diagnoses Not on filedocumented in this encounter Care Teams Slide Fastener Repairer Relationship Specialty Start Date End Date Terrie Bennett APRN [address] [place] [address] PCP - General Nurse Practitioner 03/28/24 documented as of this encounter
--- OUTSIDE RECORDS SUMMARY | 2024-08-10 05:40 | XMS_ITS | Encounter Summary ---
Author Organization [facility] yste Address [address] [place] [address] Care Team Providers Care Tree Killer Name Role Phone Donald Terrie Mcbride APRN Primary Care Provider [phone] Encounter Details Date Type Department Care Team (Late st Contact Info) Description 08/10/2024 5:40 AM EDT Hospital Encounter [facility] [place] [address] [place] [address] [place] [address] Social History Tobacco Use Types [...] [facility] [address] [place] [address] Joel Castaneda MD [address] [place] [address] documented as of this encounter Visit Diagnoses Not on filedocumented in this encounter Care Teams Tree Killer Relationship Specialty Start Date End Date Terrie Bennett APRN [facility] [place] [address] PCP - General Nurse Practitioner 03/28/24 documented as of this encounter
--- OUTSIDE RECORDS SUMMARY | 2025-01-04 05:00 | XMS_ITS | Encounter Summary ---
[facility] Address [address] [place] [address] Care Team Providers Care Storage Administrator Name Role Phone Terrie Bennett APRN Primary Care Provider [phone] Encounter Details Date Type Department Care Team (Latest Contact Info) Description 01/04/2025 5:00 AM EDT - 01/04/2025 11:59 PM EDT Hospital Encounter [facility] [address] [facility] [address] [place] [id number] Discharge Disposition: Home or Self Care Social History Tobacco Use Types Packs/Day Years [...] on file documented as of this encounter Medications at Time of Discharge Inulin (FIBER CHOICE PO) Take by mouth. Loratadine 10 MG capsule Take by mouth. multivitamin with minerals (MULTIVITAMIN ADULTS PO) Take 1 tablet by mouth Daily. relugolix (ORGOVYX) 120 MG tablet tablet Take 1 tablet by mouth Daily. Take 3 tablets on day one then 1 tablet daily 30 tablet 6 09/07/2024 rosuvastatin (CRESTOR) 5 MG tablet Take 1 tablet by mouth Daily. 03/21/2024 Sildenafil Citrate (VIAGRA PO) tadalafil (Cialis) 20 MG tablet Take 1 tablet by mouth Daily As Needed for Erectile Dysfunction. 30 tablet 5 05/31/2024 tamsulosin (FLOMAX) 0.4 MG capsule 24 hr capsule Take 1 capsule by mouth Every Night. 30 capsule 11 08/04/2022 documented as of this encounter Plan of Treatment Upcoming Encounters Date Type Department Care Team (Late st Contact Info) Description 01/01/2026 3:00 PM EDT Clinical Support [facility] [address] [place] [address] Joel Castaneda MD [address] [place] [address] documented as of this encounter Visit Diagnoses Not on filedocumented in this encounter Care Teams Storage Administrator Relationship Specialty Start Date End Date Terrie Bennett APRN [address] [place] [address] [place] [address] PCP - General Nurse Practitioner 03/28/24 documented as of this encounter
--- OUTSIDE RECORDS SUMMARY | 2025-01-04 08:30 | XMS_ITS | Encounter Summary ---
Author Organization [facility] Address [address] [place] [address] Care Team Providers Care Research Laboratory Technician Name Role Phone Terrie Bennett APRN Primary Care Provider [phone] Encounter Details Date Type Department Care Team (Late st Contact Info) Description 01/04/2025 8:30 AM EDT Clinical Support [facility] [address] [place] [address] Joel Castaneda MD [address] [place] [address] Secondary adenocarcinoma of lymph node (Primary Dx); Prostate cancer Social History Tobacco Use Types Packs/Day Years [...] on file documented as of this encounter Progress Notes * Joel Castaneda MD - 01/04/2025 8:30 AM EDT Images from the original note were not included. Telehealth follow-up visit. He has a history of intermediate risk prostate cancer treated with stereotactic body radiotherapy completing 08/25/2022. PSA zaki posttreatment was around 3 ng/ml but subsequently increased up to maximum value of 10.4 ng/mL. PSMA PET/CT performed 08/30/2024 showed multiple small hypermetabolic lymph nodes in the chest, abdomen and pelvis consistent with lymphatic metastasis of prostate cancer. There was no evidence of recurrence in the prostate gland or seminal vesicles. No bony metastasis. He initiated antiandrogen therapy with LHRH agonist injection under the care of Dr. Wade approximate 3 months ago. He is tolerating that well with mild hot flashes and mild stable fatigue. He has stable urinary outflow symptoms with nocturia x 3. No dysuria or hematuria. Bowel function has remained stable. No new aches or pains. PSA was 0.1 ng/mL on 01/02/2025. Impression: Metastatic prostate cancer. 2 years status post definitive treatment of the primary site for stereotactic body radiotherapy. He now has metastatic disease. He is tolerating antiandrogen therapy well and has had an excellent biochemical response. Plan: He will continue antiandrogen therapy under the care of of Dr. Wade. Patient wishes to continue follow-up with me also. I will see him back in approximate 1 year with another telehealth visit. Approximate 15 minutes was spent reviewing records and for discussions and documentation. documented in this encounter Plan of Treatment Upcoming Encounters Date Type Department Care Team (Late st Contact Info) Description 01/01/2026 3:00 PM EDT Clinical Support [facility] [address] [place] [address] Joel Castaneda MD [address] [place] [address] documented as of this encounter Procedures Procedure Name Priority Date/Time Associated Diagnosis Comments SCANNED - LABS 01/04/2025 SCANNED - LABS 01/04/2025 documented in this encounter Results * LABS SCANNED (01/04/2025) [facility] Onbase LAB BLOOD ORDERABLES Final Re sult * LABS SCANNED (01/04/2025) [facility] Onbase LAB BLOOD ORDERABLES Final Re sult documented in this encounter Visit Diagnoses Diagnosis Secondary adenocarcinoma of lymph node- Primary Prostate cancer Malignant neoplasm of prostate documented in this encounter Care Teams Research Laboratory Technician Relationship Specialty Start Date End Date Terrie Bennett APRN [address] [place] [address] PCP - General Nurse Practitioner 03/28/24 documented as of this encounter
[2025-01-28 16:54] LABS: Alanine Aminotransferase 27 U/L (12-78); Albumin Level 4.3 g/dl (3.5-5.0); Albumin/Globulin Ratio 1.7 (1.1-1.8); Alkaline Phosphatase 84 U/L (38-126); Anion Gap 11.8 mEq/L (5-15); Aspartate Amino Transferase 36 U/L (17-59); Bilirubin,Total 0.9 mg/dl (0.2-1.3); Blood Urea Nitrogen 16 mg/dl (9-20); Calcium 9.1 mg/dl (8.4-10.2); Carbon Dioxide 29 mmol/L (22.0-30.0); Chloride 102 mmol/L (98-107); Cholesterol 176 mg/dl (140-200); Creatinine,Serum 0.80 mg/dl (0.66-1.25); Estimated Glomerular Filt Rate 94 ml/min (>60); GFR (African American) 113 ML/MIN (>60); Globulin 2.5 g/dL (1.3-3.2); Glucose 100 mg/dl (74-100); HDL Cholesterol 39 mg/dl (40-60); Potassium 4.8 mmoL/L (3.5-5.1); Sodium 138 mmol/L (136-145); Total Protein,Serum 6.8 g/dl (6.3-8.2); Triglycerides 202 mg/dl (30-150)
[2025-01-28 17:11] LABS: 25-OH Vitamin D, Total 58.5 ng/mL (30-100)
[2025-01-28 17:29] LABS: Prostate Specific Ag, Diagnost < 0.064 ng/ml (0.0-4.0)
[2025-01-28 17:44] LABS: Vitamin B12 443 pg/mL (239-931)
[2025-01-28 18:41] LABS: Hepatitis C Ab Qual. W/ RFX NEGATIVE (Negative)
--- OUTSIDE RECORDS SUMMARY | 2025-01-29 03:26 | XMS_ITS | Clinical Summary ---
Author Organization [facility] Address [address] [facility] [place] [address] Phone Care Team Providers Care Paint Factory Worker Name Role Phone Jimmie June Primary Care Provider [phone] Allergies No known active allergies Medications cetirizine [...] topically 2 times daily. 100 g 3 Active zinc sulfate (ZINCATE) 50 mg zinc [...] LEFT URETER; Surgeon: Migel Lundberg MD; Location: [facility]IN OR; Service: Urology Medical devices [...] - 1-dose 75+ series) 11/20/2022 COVID-19 Vaccine (6 - season) 2024 01/25/2023, 02/08/2022, 03/02/2021, Additional history exists Influenza [...] Colonography Discontinued Medical Devices Implanted Type Area Planner Device Identifier Shelf Expiration Date Model / Serial / Lot Stent Ureteral Contour 6 X 26 #180-223 - [id number] Implanted:Qty: 1 on 10/08/2017 by Migel Lundberg MD at [facility] Stent Left: Ureter [employer]:MICROVASIVE: UROLOGY 07/26/2020 180-223 / / [id number] Procedures Procedure Name Priority Date/Time Associated Diagnosis Comments GMED COLONOSCOPY Routine 12/02/2021 9:00 AM EDT Screening for colon cancer HCV ANTIBODY SCREEN W/ REFLEX Routine 10/02/2017 12:54 PM EDT from Last 3 Months or Most Recently Relevant to Health Maintenance Results * GMED COLONOSCOPY (12/02/2021 9:00 AM EDT) 12/02/2021 9:00 AM EDT Impressions [facility] - 12/02/2021 9:54 AM EDT Plan: This section is an excerpt of the full report. us Ranjeet Rodriguez MD GI PROCEDURE ORDERABLES Fin al Result [facility] [address] [place] [address] * HEPATITIS C ANTIBODY - SCREENING (10/02/2017 12:54 PM EDT) Hep C Ab Non-Reactiv e Non-Reacti ve 10/02/2017 1:52 PM EDT [facility] Blood VENOUS BLOOD / Unknown Venipuncture / Unknown 10/02/2017 12:54 PM EDT 10/02/2017 12:59 PM EDT us Prabhakar Jaimes MD HEMATOLOGY ORDERABLES Final Re sult [facility] [address] [facility], [place] [address] from Last 3 Months or Most Recently Relevant to Health Maintenance Insurance [employer]NA MEDICARE PPO MR HUMANA MEDICARE PPO MR HUMANA MEDICARE PPO MR HUMANA MEDICARE PPO MR Advance Directives For more information, please contact: [phone] Documents on File Type Date Recorded Patient Bulk Gas Specialist Expl anation Power of Pig Iron Loader 10/11/2017 4:57 PM 10/07 Advance Directives/DNR 10/11/2017 4:57 PM 10/07/2017 * Full Code (Latest Code Status on File) Date Activated Date Inactivated Comments 10/02/2017 10:32 AM 10/03/2017 5:13 PM * Full Code Date Activated Date Inactivated Comments 10/02/2017 10:32 AM 10/02/2017 10:32 AM Care Teams Paint Factory Worker Relationship Specialty Start Date End Date Jimmie June [address] [place] [address] [address] [place] [address] PCP - General Family Medicine 10/07/17
--- OUTSIDE RECORDS SUMMARY | 2025-01-29 03:26 | XMS_ITS | Encounter Summary ---
Author Organization [facility] Address [address] [place] [address] Care Team Providers Care Photographic Reproduction Technician Name Role Phone Terrie Bennett APRN Primary Care Provider [phone] Encounter Details Date Type Department Care Team (Latest Contact Info) Description 01/04/2025 Travel Social History Tobacco Use Types Packs/Day Years [...] [facility] [address] [place] [address] Joel Castaneda MD [address] [place] [address] documented as of this encounter Visit Diagnoses Not on filedocumented in this encounter Care Teams Photographic Reproduction Technician Relationship Specialty Start Date End Date Terrie Bennett APRN [address] [facility] [place] [address] PCP - General Nurse Practitioner 03/28/24 documented as of this encounter
--- OUTSIDE RECORDS SUMMARY | 2025-01-29 03:26 | XMS_ITS ---
Author Organization [facility] Address [address] [place] [address] Care Team Providers Care Hide Washer Name Role Phone DonaldTerrie holt Reed SROTO Primary Care Provider [phone] Active Problems Problem Noted Date Diagnosed Date [...] Gerald Dubon Date of 1945 Phone Email [email or web address] Cancer Treatment Team Patient Care Team: Jace Wade MD as Consulting Physician (Urology) Joel Castaneda MD as Consulting Physician (Radiation Oncology) Ranjeet Rodriguez MD as Consulting Physician (Gastroenterology) Provider Phone numbers Care Team Provider: Jace Wade MD, ([phone]) Care Team Provider: Joel Castaneda MD, ([phone]) Care Team Provider: Ranjeet Rodriguez MD, ([phone]) Post Treatment Care Team Primary Care Physician Khurram Block MD [phone] [place] [address] Background Information Medical history Past Medical History: [...] 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 bed bug exterminator effects of radiation therapy vary greatly depending [...] to you. General Cancer Support & Resources [facility] [address] [facility], [address] [place] [address] Med Onc: Gate Clerk Onc: Driller And Broacher: Deyanira Covarrubias - Psychiatric Nurse Practitioner: Marisa Multani APRN - Kick It! (A free smoking cessation program) Financial Counselor and Contact Information: [facility] Financial Counseling [phone] Dust Box Worker Contact Information: Tami Fontaine - Local Cancer Support Group and Contact Information: [facility] Cancer Hernan: This support group is open to anyone that has been diagnosed with cancer of any type. Meets at 6:30pm on the last Tuesday of each month. Location: [facility]; [address] [place] [address]. For more information call Yolie Martinez @ . Prostate Cancer Support & Resources Local Resources [facility] Prostate Support Group: The mission of TOO is to provide hope and improve the lives of of those affected by prostate cancer through support, education, and advocacy/ awareness. The group meets the of each month at 6:30 p[address] [facility], [address] [place], [place] [id number] Surveillance How Frequent? Medical Oncology visits 1 [...] advice of a doctor or other health doggy daycare activities director. Please use these recommendations to talk with [...] of cancer in the general population. The [place] [employer] Society (ACS) recommends these screening guidelines for men: Recommendation Frequency Comments Colon and Rectal Cancer Screening For more information see the ACS document Colorectal Cancer: Early Detection. www.cancer.org/ssLINK/imddbojggn-mfmqdt-fnvnn-detection-lashaun Options for colon cancer screening can be [...] see the ACS Document Testicular Cancer Detection: http://www.cancer.org/cancer/testicularcancer/detailedguide/exhyxbbjam-hkeqvv-ry tection Men of any age can develop [...] more information, visit http://www.nhlbi.nih.gov/health/public/heart/obesity/lose_wt/index.htm www.win.niddk.nih.gov Call the [place] [employer] Association Talk to your health care [...] Experts recommend at least 30 minutes of aedpijux-sj-cekshdbn activity per day, five days a week. [...] you can call a national hotline at 0(815)-QUIT-NOW. Have regular check-ups by a healthcare professional. For more information about healthy screening tests for men visit the U.S. Department of Health and Human Services. http://www.womenshealth.gov/kqaaanyax-txfgl-coo-vaccines/yuxqbszma-yugwn-xbx-men / For more information about adult vaccinations visit the CDC: http://www.cdc.gov/vaccines/recs/schedules/adult-schedule.htm Keep up-to-date on general health screening tests, including cholesterol, blood pressure and glucose (blood sugar) levels. Get an annual influenza vaccine (flu shot). Get vaccinated with the pneumococcal vaccine, which prevents a type of pneumonia, and re-vaccinatedas determined by your health care team. Don???t forget dental and eye health! The [place] [employer] recommends adults have their eyes examined every two years until age 60, then annually. People who wear glasses or correctivelenses or are at high risk for eye problems (i.e., diabetics, family history of eye disease) shouldbe seen more frequently. The [place] [employer] Association recommends adults see their dentist at least once a year. No information on file. No information on file.
--- OUTSIDE RECORDS SUMMARY | 2025-01-29 03:26 | XMS_ITS | Clinical Summary ---
Author Organization [facility] Address [address] [place] [address] Care Team Providers Care Rn Immunology Name Role Phone Terrie Bennett APRN Primary Care Provider [phone] Allergies No known active allergies Medications Loratadine [...] Encounters Date Type Department Care Team Description 01/04/2025 8:30 AM EDT Clinical Support [facility] [address] [place] [address] Joel Castaneda MD Secondary adenocarcinoma of lymph node (Primary Dx); Prostate cancer 01/04/2025 5:00 AM EDT - 01/04/2025 11:59 PM EDT Hospital Encounter [facility] [address] [place] [address] Discharge Disposition: Home or Self Care 01/04/2025 Travel 11/29/2024 Telephone [facility] [address] [place] [address] Nichol Her RN from Last 3 Months Family History Medical [...] [facility] [address] [place] [address] Joel Castaneda MD [address] [place] [address] Health Maintenance Due Date Last Done Comments ZOSTER VACCINE (1 of 2) 04/12/2019 02/15/2019 ANNUAL WELLNESS VISIT 06/25/2022 RSV Vaccine - Adults (1 - 1- dose 75+ series) 11/20/2022 INFLUENZA VACCINE 11/23/2024 01/31/2024, , 02/08/2022, Additional history exists COVID-19 Vaccine (6 - Modern a risk season) 2024 01/31/2024, 01/25/2023, 02/08/2022, Additional history exists TDAP/TD VACCINES (3 [...] - LABS 01/04/2025 SCANNED - LABS 01/04/2025 from Last 3 Months Results * LABS SCANNED (01/04/2025) Only the most recent of2 resultswithin the time period is included. [facility] Onbase LAB BLOOD ORDERABLES Final Re sult from Last 3 Months Insurance [facility] MED[facility] ADVANTAGE PPO Care Teams Rn Immunology Relationship Specialty Start Date End Date Terrie Bennett APRN [address] [facility] [address] [address] [place] [address] PCP - General Nurse Practitioner 03/28/24
== END 2025-01-28 23:59 ==
LOC: LAB.DROPOF 01-29 03:24
PROVIDERS: PCP Nurse Practitioner; Visit Provider Nurse Practitioner
DX: C61 Malignant neoplasm of prostate (principal); E55.9 Vitamin D deficiency, unspecified; E78.5 Hyperlipidemia, unspecified; Z11.59 Encounter for screening for other viral diseases
CPT/HCPCS: 80053; 80061; 82306; 82607; 84153; 86803; 87389

== ENCOUNTER 2025-02-08 07:39 | Outpatient (CLI) | payer MEDICARE, SELFPAY ==
--- OUTSIDE RECORDS SUMMARY | 2024-05-29 06:15 | XMS_ITS | Encounter Summary ---
Author Organization [facility] yste Address [address] [place] [address] Care Team Providers Care Visitor Services Specialist Name Role Phone Terrie Bennett APRN Primary Care Provider [phone] Encounter Details Date Type Department Care Team (Late st Contact Info) Description 05/29/2024 5:15 AM EST Hospital Encounter [facility] [place] [address] [facility] [address] [place] [address] Social History Tobacco Use Types Packs/Day Years Used Date Smoking Tobacco: Never Smokeless Tobacco: Never Alcohol Use Standard Drinks/Week Comments Never 0 (1 standard drink = 0.6 oz pur e alcohol) PHQ-2 Answer Date Recorded Retired PHQ-9: Brief Depression Severity Measure Score 0 06/28/2022 Abuse Screen Answer Date Recorded Feels Unsafe at Home or Work/School no 04/15/2023 Feels Threatened by Someone no 03/26 Does Anyone Try to Keep You From Having Contact with Others or Doing Things Outside Your Home? no 04/15/2023 Physical Signs of Abuse Present no 04/15/2023 PHQ-2 Answer Date Recorded Retired PHQ-9: Brief Depression Severity Measure Score 0 06/28/2022 Sex and Gender Information Value Date Recorded Sex Assigned at Male 08/09/2024 7:09 PM EDT Legal Sex Male 12:15 PM EDT Gender Identity Not on file Sexual Orientation Not on file documented as of this encounter Plan of Treatment Upcoming Encounters Date Type Department Care Team (Late st Contact Info) Description 01/01/2026 3:00 PM EDT Clinical Support [facility] [address] [place] [address] Joel Castaneda MD [address] [place] [address] documented as of this encounter Visit Diagnoses Not on filedocumented in this encounter Care Teams Visitor Services Specialist Relationship Specialty Start Date End Date Terrie Bennett APRN [address] [place] [address] PCP - General Nurse Practitioner 03/28/24 documented as of this encounter
--- OUTSIDE RECORDS SUMMARY | 2024-08-10 05:40 | XMS_ITS | Encounter Summary ---
Author Organization [facility] yste Address [address] [place] [address] Care Team Providers Care Card Game Operator Name Role Phone Donald Terrie Mcbride APRN Primary Care Provider [phone] Encounter Details Date Type Department Care Team (Late st Contact Info) Description 08/10/2024 5:40 AM EDT Hospital Encounter [facility] [place] [address] [place] [address] [place] [address] Social History Tobacco Use Types [...] [facility] [address] [place] [address] Joel Castaneda MD [address] [place] [address] documented as of this encounter Visit Diagnoses Not on filedocumented in this encounter Care Teams Card Game Operator Relationship Specialty Start Date End Date Terrie Bennett APRN [facility] [place] [address] PCP - General Nurse Practitioner 03/28/24 documented as of this encounter
--- OUTSIDE RECORDS SUMMARY | 2025-01-04 05:00 | XMS_ITS | Encounter Summary ---
[facility] [address] [place] [address] Care Team Providers Care Lead Pourer Name Role Phone Terrie Bennett APRN Primary Care Provider [phone] Encounter Details Date Type Department Care Team (Latest Contact Info) Description 01/04/2025 5:00 AM EDT - 01/04/2025 11:59 PM EDT Hospital Encounter [facility] [address] [facility] [address] [place] [id number] Discharge Disposition: Home or Self Care Social [...] [facility] [address] [place] [address] Joel Castaneda MD [address] [place] [address] documented as of this encounter Visit Diagnoses Not on filedocumented in this encounter Care Teams Lead Pourer Relationship Specialty Start Date End Date Terrie Bennett APRN [address] [place] [address] [place] [address] PCP - General Nurse Practitioner 03/28/24 documented as of this encounter
--- OUTSIDE RECORDS SUMMARY | 2025-01-04 08:30 | XMS_ITS | Encounter Summary ---
Author Organization [facility] Address [address] [place] [address] Care Team Providers Care Valve Fitter Name Role Phone Terrie Bennett APRN Primary Care Provider [phone] Encounter Details Date Type Department Care Team (Late st Contact Info) Description 01/04/2025 8:30 AM EDT Clinical Support [facility] [address] [place] [address] Joel Castaneda MD [address] [place] [address] Secondary adenocarcinoma of lymph node (Primary Dx); [...] [facility] [address] [place] [address] Joel Castaneda MD [address] [place] [address] documented as of this encounter Procedures Procedure Name Priority Date/Time Associated Diagnosis Comments SCANNED - LABS 01/04/2025 SCANNED - LABS 01/04/2025 documented in this encounter Results * LABS SCANNED (01/04/2025) [facility] Onbase LAB BLOOD ORDERABLES Final Re sult * LABS SCANNED (01/04/2025) [facility] Onbase LAB BLOOD ORDERABLES Final Re sult documented in this encounter Visit Diagnoses Diagnosis Secondary adenocarcinoma of lymph node- Primary Prostate cancer Malignant neoplasm of prostate documented in this encounter Care Teams Valve Fitter Relationship Specialty Start Date End Date Terrie Bennett APRN [address] [place] [address] PCP - General Nurse Practitioner 03/28/24 documented as of this encounter
--- OUTSIDE RECORDS SUMMARY | 2025-02-08 07:44 | XMS_ITS | Clinical Summary ---
Author Organization [facility] Address [address] [place] [address] Care Team Providers Care Machining Engineer Name Role Phone Terrie Bennett APRN Primary Care Provider [phone] Allergies No known active allergies Medications Loratadine [...] [facility] [address] [place] [address] Joel Castaneda MD Secondary adenocarcinoma of lymph node (Primary Dx); Prostate cancer 01/04/2025 5:00 AM EDT - 01/04/2025 11:59 PM EDT Hospital Encounter [facility] [address] [place] [address] Discharge Disposition: Home or Self Care 01/04/2025 Travel 11/29/2024 Telephone [facility] [address] [place] [address] Nichol Her RN from Last 3 Months [...] [facility] [address] [place] [address] Joel Castaneda MD [address] [place] [address] Health Maintenance Due Date Last Done Comments [...] of2 resultswithin the time period is included. [facility] Onbase LAB BLOOD ORDERABLES Final Re sult from Last 3 Months Insurance [facility] MEDICARE ADVANTAGE PPO Care Teams Machining Engineer Relationship Specialty Start Date End Date Terrie Bennett APRN [address] [place] [address] PCP - General Nurse Practitioner 03/28/24
--- OUTSIDE RECORDS SUMMARY | 2025-02-08 07:44 | XMS_ITS | Clinical Summary ---
Author Organization [facility] Address [address] [facility] [place] [address] Phone Care Team Providers Care Motion Picture Cameraman Name Role Phone Jimmie June Primary Care Provider [phone] Allergies No known active allergies Medications cetirizine [...] LEFT URETER; Surgeon: Migel Lundberg MD; Location: [facility] MA[facility] OR; Service: Urology Medical devices from [...] Colonography Discontinued Medical Devices Implanted Type Area Glass Carrier Device Identifier Shelf Expiration Date Model / Serial / Lot Stent Ureteral Contour 6 X 26 #180-223 - [id number] Implanted:Qty: 1 on 10/08/2017 by Migel Lundberg MD at [facility] Stent Left: Ureter [employer]:MICROVASIVE: UROLOGY 07/26/2020 180-223 / / [id number] Procedures Procedure Name Priority Date/Time Associated Diagnosis Comments GMED COLONOSCOPY Routine 12/02/2021 9:00 AM EDT Screening for colon cancer HCV ANTIBODY SCREEN W/ REFLEX Routine 10/02/2017 12:54 PM EDT from Last 3 Months or Most Recently Relevant to Health Maintenance Results * GMED COLONOSCOPY (12/02/2021 9:00 AM EDT) 12/02/2021 9:00 AM EDT Impressions [facility] - 12/02/2021 9:54 AM EDT Plan: This section is an excerpt of the full report. us Ranjeet Rodriguez MD GI PROCEDURE ORDERABLES Fin al Result [facility] [address] [place] [address] * HEPATITIS C ANTIBODY - SCREENING (10/02/2017 12:54 PM EDT) Hep C Ab Non-Reactiv e Non-Reacti ve 10/02/2017 1:52 PM EDT [facility] [employer] Blood VENOUS BLOOD / Unknown Venipuncture / Unknown 10/02/2017 12:54 PM EDT 10/02/2017 12:59 PM EDT us Prabhakar Jaimes MD HEMATOLOGY ORDERABLES Final Re sult [facility] [address] [facility], [place] [address] from Last 3 Months or Most Recently Relevant to Health Maintenance Insurance HU[employer]NA MEDICARE PPO MR HUMANA MEDICARE PPO MR HUMANA MEDICARE PPO MR HUMANA MEDICARE PPO MR Advance Directives For more information, please contact: [phone] Documents on File Type Date Recorded Patient Thread Trimmer Expl anation Power of Garment Manufacturing Supervisor 10/11/2017 4:57 PM 10/07 Advance Directives/DNR 10/11/2017 4:57 PM 10/07/2017 * Full Code (Latest Code Status on File) Date Activated Date Inactivated Comments 10/02/2017 10:32 AM 10/03/2017 5:13 PM * Full Code Date Activated Date Inactivated Comments 10/02/2017 10:32 AM 10/02/2017 10:32 AM Care Teams Motion Picture Cameraman Relationship Specialty Start Date End Date Jimmie June [address] [place] [address] [address] [place] [address] PCP - General Family Medicine 10/07/17
--- OUTSIDE RECORDS SUMMARY | 2025-02-08 07:44 | XMS_ITS | Clinical Summary ---
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 (SNOMED CT) Active Zack Sloan MD Prolapsed lumbar intervertebral disc PREOP EXAM [id number] (SNOMED CT) Active Batsheva Boyle MA Pre-surgery evaluation Medications Medication Instructions Start Date Stop Date Generic Name [facility] Provider OXYCODONE-ACETAMIN OPHEN 5-325 MG TABS Take 1-2 tablet by mouth every four to six hours as needed for pain Take no more than 6 tabs/day oxycodone-acetami nophen [id number] Zack Sloan MD TAMSULOSIN HCL 0.4 MG CAPS tamsulosin [id number] Batsheva Boyle MA PREDNISONE 20 MG TABS prednisone [id number] Batsheva Boyle MA CYCLOBENZAPRINE HCL 10 MG TABS cyclobenzaprine [id number] Chandrakant Boyle MA MELOXICAM 15 MG TABS meloxicam [id number] Batsheva Boyle MA OXYBUTYNIN CHLORIDE ER 10 MG [id number] oxybutynin chloride [id number] Batsheva Boyle MA Medications Administered No information available. Allergies, Adverse Reactions, Alerts Observed no known allergies at Results No information available. Plan of Care Type Date Detail Pending order CBC Pending order Renal functional panel with BUN Pending order EKG Procedures Code Procedure Name Date Entry Date 82646 Evaluation - Low 83108 Therapeutic Activities 06/15 Vital Signs Date Name [...]
--- OUTSIDE RECORDS SUMMARY | 2025-02-08 07:44 | XMS_ITS | Encounter Summary ---
Author Organization [facility] Address [address] [place] [address] Care Team Providers Care Care Taker Name Role Phone Terrie Bennett APRN Primary Care Provider [phone] Encounter Details Date Type Department Care Team [...] [facility] [address] [place] [address] Joel Castaneda MD [address] [place] [address] documented as of this encounter Visit Diagnoses Not on filedocumented in this encounter Care Teams Care Taker Relationship Specialty Start Date End Date Terrie Bennett APRN [address] [facility] [place] [address] PCP - General Nurse Practitioner 03/28/24 documented as of this encounter
--- OUTSIDE RECORDS SUMMARY | 2025-02-08 07:44 | XMS_ITS ---
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 Name Role Phone DonaldTerrie holt Reed SORTO Primary Care Provider [phone] Active Problems Problem Noted Date Diagnosed Date [...] Gerald Dubon Date of 1945 Phone Email [email or web address] Treatment Team Patient Care Team: Jace Wade MD as Consulting Physician (Urology) Joel Castaneda MD as Consulting Physician (Radiation Oncology) Ranjeet Rodriguez MD as Consulting Physician (Gastroenterology) Provider Phone numbers Care Team Provider: Jace Wade MD, ([phone]) Care Team Provider: Joel Castaneda MD, ([phone]) Care Team Provider: Ranjeet Rodriguez MD, ([phone]) Post Treatment Care Team Primary Care Physician Khurram Block MD [phone] [place] [address] Background Information Medical history Past Medical History: [...] 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 emt intermediate effects of radiation therapy vary greatly depending [...] to you. 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 (A free smoking cessation program) Financial Counselor and Contact Information: [facility] [phone] Supervisor Anodizing Contact Information: Tami Fontaine - Local Cancer Support Group and Contact Information: [facility]: This support group is open to anyone that has been diagnosed with cancer of any type. Meets at 6:30pm on the last Tuesday of each month. Location: [facility]; [address] [place] [address]. For more information call Yolie Martinez @ . Prostate Cancer Support & Resources Local Resources [facility] Prostate Support Group: The mission of [facility] is to provide hope and improve the lives of of those affected by prostate cancer through support, education, and advocacy/ awareness. The group meets the of each month at 6:30 p.m. [address] [facility], [address] [place], [place] [id number] Surveillance How Frequent? Medical Oncology visits 1 [...] advice of a doctor or other health acute care physician. Please use these recommendations to talk with [...] of cancer in the general population. The [place] [employer] (ACS) recommends these screening guidelines for men: Recommendation Frequency Comments Colon and Rectal Cancer Screening For more information see the ACS document Colorectal Cancer: Early Detection. www.cancer.org/ssLINK/fsoicllyfa-pzjesc-ayvev-detection-lashaun Options for colon cancer screening can be [...] see the ACS Document Testicular Cancer Detection: http://www.cancer.org/cancer/testicularcancer/detailedguide/wbzopabtxb-iodpaa-tv tection Men of any age can develop [...] more information, visit http://www.nhlbi.nih.gov/health/public/heart/obesity/lose_wt/index.htm www.win.niddk.nih.gov Call the [place] [employer] Talk to your health care [...] Experts recommend at least 30 minutes of blbzskbb-vq-oppvqhvm activity per day, five days a week. [...] you can call a national hotline at 5(033)-QUIT-NOW. Have regular check-ups by a healthcare professional. For more information about healthy screening tests for men visit the U.S. Department of Health and Human Services. http://www.womenshealth.gov/diuvfxrue-aghpj-uwo-vaccines/iyawicqph-mjzws-ykr-men / For more information about adult vaccinations visit the CDC: http://www.cdc.gov/vaccines/recs/schedules/adult-schedule.htm Keep up-to-date on general health screening tests, including cholesterol, blood pressure and glucose (blood sugar) levels. Get an annual influenza vaccine (flu shot). Get vaccinated with the pneumococcal vaccine, which prevents a type of pneumonia, and re-vaccinatedas determined by your health care team. Don???t forget dental and eye health! The [employer] recommends adults have their eyes examined every two years until age 60, then annually. People who wear glasses or correctivelenses or are at high risk for eye problems (i.e., diabetics, family history of eye disease) shouldbe seen more frequently. The [employer] recommends adults see their dentist at least once a year. No information on file. No information on file.
--- OUTSIDE RECORDS SUMMARY | 2025-02-08 07:44 | XMS_ITS | Data Portability ---
Author Organization GRETCHEN SHARIFA [facility] [place] [facility] Address [address] [place] [address] Care Team Providers Care Customer Account Representative Name Role Phone [facility] Primary Care Provider ALYSSA BROCK Vegetable Grader Assessment No assessment recorded. Plan of Treatment Reminders Order Date Submit Date Provider Last Modified By Organization Details Last Modified Time Details Appointments SHOT ONLY 2024 01:45P M CUA_NURSE Not available Not available Not available RECHECK 2025 11:00A M RANJIT GALLARDO MD Not available Not available Not available Lab urinalysi s panel, auto [address] [facility], [address], [address], [place], [address], 01/02/2025 17:46:36 PSA, serum or plasma 2024 025 [email or web address] [facility], [address], [address], [place], [address], 01/02/2025 17:46:36 urinalysi s panel, auto 2024 025 [email or web address] [facility], [address], [address], [place], [address], 09/06/2024 21:57:59 PSA, serum or plasma [address] [facility], [address], [address], [place], [address], 09/06/2024 21:57:59 urinalysi s panel, auto [address] [facility], [address], [address], [place], [address], 08/16/2024 22:30:16 PSA, total + free, serum or plasma 2024 025 [facility], [address] [place] [address], [address], 05/25/2024 16:50:53 Referral None recorded. Procedures None recorded. Surgeries None recorded. Imaging None recorded. Medication Orders None recorded. Patient TargetsNo targets recorded. Patient InstructionsNo instructions recorded. Reason for Referral None Reported. Results Created Date Observation Date Name Description Value Unit Range Abnormal Flag Note LastModifiedBy Organization Detail LastModifiedTime 05/25/19 25 05/25/2024 PSA, TOTAL AND FREE prostate specific Ag 5.990 NG/mL 0.000- 4.400 high The % Free PSA ratio is usefu l as an aid in disti nguis gordon prost ate cance r from benig n prost ate condi tions in men 50 years or older who have a digit al recta l exam that is not suspi cious for prost ate cance r and a Total PSA value in the range of 4.0 - 10.0. Pleas e notif y the lab at [phone] withi n 24 hrs if add-o n testi ng of Free PSA is rivas ed. This test was perfo rmed using Zoya e801 Elect zoya milum inesc ent metho d. The test metho d is based on WHO-s tanda rdize d calib ratio n. Value s obtai jaye from diffe rent assay metho ds or manuf actur ers may not be elmer rable . Not Available [facility] [address] [place], [address], 05/25/2024 16:50:53 05/25/1905/25/2024 PSA, TOTAL AND FREE free PSA 0.49 NG/mL normal Test metho d is based on WHO-s tanda rdize d calib ratio n using the Zoya E801 magnolia zer. Free PSA resul ts by diffe rent test proce dures canno t be direc tly elmer red with one anoth er. Not Available [facility] [address] [place] [address], [address], 05/25/2024 16:50:53 05/25/1905/25/2024 PSA, TOTAL AND FREE % free PSA 8 % normal ____ PSA ng/mL % FREE PSA Proba bilit y of Prost ate Cance r % ____ Less than 4.00 N/A 17% 4.0 - 10.0 0-10 56% 10-15 28% 15-20 20% 20-25 16% Great er than 25 8% Great er than 10.0 N/A 49% ____ Not Available [facility] [address] [place] [address], [address], 05/25/2024 16:50:53 08/16/19 25 08/15/2024 urina lysis panel , auto Unknown Analyte Clean Catch Not Available [facility] [address], [place], [address], 08/15/2024 13:57:57 08/16/19 25 08/15/2024 urina lysis panel , auto Unknown Analyte Yellow Not Available [facility] [address], [place], [address], 08/15/2024 13:57:57 08/16/19 25 08/15/2024 urina lysis panel , auto Unknown Analyte Clear Not Available [facility] [address], [place], [address], 08/15/2024 13:57:57 08/16/19 25 08/15/2024 urina lysis panel , auto Unknown Analyte 1.020 Not Available [facility] [address], [place], [address], 08/15/2024 13:57:57 08/16/19 25 08/15/2024 urina lysis panel , auto Unknown Analyte 1.003 - 1.030 Not Available [facility] [address], [place], [address], 08/15/2024 13:57:57 08/16/19 25 08/15/2024 urina lysis panel , auto Unknown Analyte 5.0 Not Available [facility] [address], [place], [address], 08/15/2024 13:57:57 08/16/19 25 08/15/2024 urina lysis panel , auto Unknown Analyte 5.0 - 8.0 Not Available [facility] [address], [place], [address], 08/15/2024 13:57:57 08/16/19 25 08/15/2024 urina lysis panel , auto Unknown Analyte Negati ve Not Available [facility] [address], [place], [address], 08/15/2024 13:57:57 08/16/19 25 08/15/2024 urina lysis panel , auto Unknown Analyte Negati ve Not Available [facility] [address], [place], [address], 08/15/2024 13:57:57 08/16/19 25 08/15/2024 urina lysis panel , auto Unknown Analyte Negati ve Not Available [facility] [address], [place], [address], 08/15/2024 13:57:57 08/16/19 25 08/15/2024 urina lysis panel , auto Unknown Analyte Negati ve Not Available [facility] [address], [place], [address], 08/15/2024 13:57:57 08/16/19 25 08/15/2024 urina lysis panel , auto Unknown Analyte Negati ve Not Available [facility] [address], [place], [address], 08/15/2024 13:57:57 08/16/19 25 08/15/2024 urina lysis panel , auto Unknown Analyte Negati ve Not Available [facility] [address], [place], [address], 08/15/2024 13:57:57 08/16/19 25 08/15/2024 urina lysis panel , auto Unknown Analyte Normal Not Available [facility] [address], [place], [address], 08/15/2024 13:57:57 08/16/19 25 08/15/2024 urina lysis panel , auto Unknown Analyte Normal Not Available [facility] [address], [place], [address], 08/15/2024 13:57:57 08/16/19 25 08/15/2024 urina lysis panel , auto Unknown Analyte Negati ve Not Available [facility] [address], [place], [address], 08/15/2024 13:57:57 08/16/19 25 08/15/2024 urina lysis panel , auto Unknown Analyte Negati ve Not Available [facility] [address], [place], [address], 08/15/2024 13:57:57 08/16/19 25 08/15/2024 urina lysis panel , auto Unknown Analyte Normal Not Available [facility] [address], [place], [address], 08/15/2024 13:57:57 08/16/19 25 08/15/2024 urina lysis panel , auto Unknown Analyte Normal Not Available [facility] [address], [place], [address], 08/15/2024 13:57:57 08/16/19 25 08/15/2024 urina lysis panel , auto Unknown Analyte Negati ve Not Available [facility] [address], [place], [address], 08/15/2024 13:57:57 08/16/19 25 08/15/2024 urina lysis panel , auto Unknown Analyte Negati ve Not Available [facility] [address], [place], [address], 08/15/2024 13:57:57 08/16/19 25 08/15/2024 urina lysis panel , auto Unknown Analyte Negati ve Not Available [facility] [address], [place], [address], 08/15/2024 13:57:57 08/16/19 25 08/15/2024 urina lysis panel , auto Unknown Analyte Negati ve Not Available [facility] [address], [place], [address], 08/15/2024 13:57:57 09/06/19 25 09/05/2024 PSA, serum or plasm a PSA 10.7 NG/mL 0.0 - 4.0 Not Available [facility] [address], [place], [address], 09/05/2024 16:07:08 09/06/19 25 09/05/2024 urina lysis panel , auto Unknown Analyte Clean Catch Not Available [facility] [address], [place], [address], 09/05/2024 15:44:04 09/06/19 25 09/05/2024 urina lysis panel , auto Unknown Analyte Yellow Not Available [facility] [address], [place], [address], 09/05/2024 15:44:04 09/06/19 25 09/05/2024 urina lysis panel , auto Unknown Analyte Clear Not Available [facility] [address], [place], [address], 09/05/2024 15:44:04 09/06/19 25 09/05/2024 urina lysis panel , auto Unknown Analyte 1.015 Not Available [facility] [address], [place], [address], 09/05/2024 15:44:04 09/06/19 25 09/05/2024 urina lysis panel , auto Unknown Analyte 1.003 - 1.030 Not Available [facility] [address], [place], [address], 09/05/2024 15:44:04 09/06/19 25 09/05/2024 urina lysis panel , auto Unknown Analyte 5.0 Not Available [facility] [address], [place], [address], 09/05/2024 15:44:04 09/06/19 25 09/05/2024 urina lysis panel , auto Unknown Analyte 5.0 - 8.0 Not Available [facility] [address], [place], [address], 09/05/2024 15:44:04 09/06/19 25 09/05/2024 urina lysis panel , auto Unknown Analyte Negati ve Not Available [facility] [address], [place], [address], 09/05/2024 15:44:04 09/06/19 25 09/05/2024 urina lysis panel , auto Unknown Analyte Negati ve Not Available [facility] [address], [place], [address], 09/05/2024 15:44:04 09/06/19 25 09/05/2024 urina lysis panel , auto Unknown Analyte Negati ve Not Available [facility] [address], [place], [address], 09/05/2024 15:44:04 09/06/19 25 09/05/2024 urina lysis panel , auto Unknown Analyte Negati ve Not Available [facility] [address], [place], [address], 09/05/2024 15:44:04 09/06/19 25 09/05/2024 urina lysis panel , auto Unknown Analyte Negati ve Not Available [facility] [address], [place], [address], 09/05/2024 15:44:04 09/06/19 25 09/05/2024 urina lysis panel , auto Unknown Analyte Negati ve Not Available [facility] [address], [place], [address], 09/05/2024 15:44:04 09/06/19 25 09/05/2024 urina lysis panel , auto Unknown Analyte Normal Not Available [facility] [address], [place], [address], 09/05/2024 15:44:04 09/06/19 25 09/05/2024 urina lysis panel , auto Unknown Analyte Normal Not Available [facility] [address], [place], [address], 09/05/2024 15:44:04 09/06/19 25 09/05/2024 urina lysis panel , auto Unknown Analyte Negati ve Not Available [facility] [address], [place], [address], 09/05/2024 15:44:04 09/06/19 25 09/05/2024 urina lysis panel , auto Unknown Analyte Negati ve Not Available [facility] [address], [place], [address], 09/05/2024 15:44:04 09/06/19 25 09/05/2024 urina lysis panel , auto Unknown Analyte Normal Not Available [facility] [address], [place], [address], 09/05/2024 15:44:04 09/06/19 25 09/05/2024 urina lysis panel , auto Unknown Analyte Normal Not Available [facility] [address], [place], [address], 09/05/2024 15:44:04 09/06/19 25 09/05/2024 urina lysis panel , auto Unknown Analyte Negati ve Not Available [facility] [address], [place], [address], 09/05/2024 15:44:04 09/06/19 25 09/05/2024 urina lysis panel , auto Unknown Analyte Negati ve Not Available [facility] [address], [place], [address], 09/05/2024 15:44:04 09/06/19 25 09/05/2024 urina lysis panel , auto Unknown Analyte Negati ve Not Available [facility] [address], [place], [address], 09/05/2024 15:44:04 09/06/19 25 09/05/2024 urina lysis panel , auto Unknown Analyte Negati ve Not Available [facility] [address], [place], [address], 09/05/2024 15:44:04 01/03/20 25 01/02/2025 PSA, serum or plasm a PSA 0.10 NG/mL 0.0 - 4.0 Not Available [facility] [address], [place], [address], 01/02/2025 15:15:30 01/03/20 25 01/02/2025 urina lysis panel , auto Unknown Analyte Clean Catch Not Available [facility] [address], [place], [address], 01/02/2025 14:59:10 01/03/20 25 01/02/2025 urina lysis panel , auto Unknown Analyte Yellow Not Available [facility] [address], [place], [address], 01/02/2025 14:59:10 01/03/20 25 01/02/2025 urina lysis panel , auto Unknown Analyte Clear Not Available [facility] [address], [place], [address], 01/02/2025 14:59:10 01/03/20 25 01/02/2025 urina lysis panel , auto Unknown Analyte 1.025 Not Available [facility] [address], [place], [address], 01/02/2025 14:59:10 01/03/20 25 01/02/2025 urina lysis panel , auto Unknown Analyte 1.003 - 1.030 Not Available [facility] [address], [place], [address], 01/02/2025 14:59:10 01/03/20 25 01/02/2025 urina lysis panel , auto Unknown Analyte 5.0 Not Available [facility] [address], [place], [address], 01/02/2025 14:59:10 01/03/2001/02/2025 urina lysis panel , auto Unknown Analyte 5.0 - 8.0 Not Available [facility] [address], [place], [address], 01/02/2025 14:59:10 01/03/20 25 01/02/2025 urina lysis panel , auto Unknown Analyte Negati ve Not Available [facility] [address], [place], [address], 01/02/2025 14:59:10 01/03/2001/02/2025 urina lysis panel , auto Unknown Analyte Negati ve Not Available [facility] [address], [place], [address], 01/02/2025 14:59:10 01/03/2001/02/2025 urina lysis panel , auto Unknown Analyte Negati ve Not Available [facility] [address], [place], [address], 01/02/2025 14:59:10 01/03/2001/02/2025 urina lysis panel , auto Unknown Analyte Negati ve Not Available [facility] [address], [place], [address], 01/02/2025 14:59:10 01/03/2001/02/2025 urina lysis panel , auto Unknown Analyte Negati ve Not Available [facility] [address], [place], [address], 01/02/2025 14:59:10 01/03/2001/02/2025 urina lysis panel , auto Unknown Analyte Negati ve Not Available [facility] [address], [place], [address], 01/02/2025 14:59:10 01/03/20 25 01/02/2025 urina lysis panel , auto Unknown Analyte Normal Not Available [facility] [address], [place], [address], 01/02/2025 14:59:10 01/03/20 25 01/02/2025 urina lysis panel , auto Unknown Analyte Normal Not Available [facility] [address], [place], [address], 01/02/2025 14:59:10 01/03/2001/02/2025 urina lysis panel , auto Unknown Analyte Negati ve Not Available [facility] [address], [place], [address], 01/02/2025 14:59:10 01/03/20 25 01/02/2025 urina lysis panel , auto Unknown Analyte Negati ve Not Available [facility] [address], [place], [address], 01/02/2025 14:59:10 01/03/20 25 01/02/2025 urina lysis panel , auto Unknown Analyte Normal Not Available [facility] [address], [place], [address], 01/02/2025 14:59:10 01/03/2001/02/2025 urina lysis panel , auto Unknown Analyte Normal Not Available [facility] [address], [place], [address], 01/02/2025 14:59:10 01/03/2001/02/2025 urina lysis panel , auto Unknown Analyte Negati ve Not Available [facility] [address], [place], [address], 01/02/2025 14:59:10 01/03/20 25 01/02/2025 urina lysis panel , auto Unknown Analyte Negati ve Not Available [facility] [address], [place], [address], 01/02/2025 14:59:10 01/03/20 25 01/02/2025 urina lysis panel , auto Unknown Analyte Negati ve Not Available [facility] [address], [place], [address], 01/02/2025 14:59:10 01/03/20 25 01/02/2025 urina lysis panel , auto Unknown Analyte Negati ve Not Available [facility] [address], [place], [address], 01/02/2025 14:59:10 Result Notes None recorded. Problems Name Problem SNOMED Code Status Onset Date Resolution Date Notes Provider Name and Address Organization Details Recorded Time Actinic keratosis 071213707 Active 024 Lupis Del Rio [facility] 13:51:28 Problem Notes None recorded. Procedures Surgical History Date Name Laterality Status Provider Name and Address Organization Details Recorded Time 09/12/19 25 Lupron Administration completed Nisha Key [facility] 09/11/2024 14:03:17 03/28/20 24 DAK - Cryo AK completed Lupis Del Rio [facility] 03/28/2024 13:52:19 04/25/19 22 colonoscopy completed Lorri Upton [facility] 04/23/2022 14:17:49 04/25/19 18 Kidney Stone Removal completed Lorri Upton [facility] 04/23/2022 14:18:00 04/25/19 06 procedure on hand completed Lorri Upton [facility] 04/23/2022 14:18:15 Back Surgery completed Conor Kelley [facility] 03/28/2024 13:33:18 Imaging Results None recorded. Procedure Notes None recorded. Medical Equipment None Reported. Allergies No known drug allergies Medications Name Sig Start Date Stop Date Status Note LastModified by Organization Details LastModified Time oxybutynin chloride ER 10 mg tablet,exten ded release 24 hr Take 1 tablet every day by oral route. 2022 active dc Not Available Not Available Not Avai lable sildenafil 100 mg tablet Take 1 tablet every day by oral route as needed. 2022 active Not Available Not Available Not Avai lable tamsulosin 0.4 mg capsule Take 1 capsule twice a day by MOUTH 2023 active Not Available Not Available Not Avai lable levofloxacin 750 mg tablet Take 1 tablet every day by oral route. 07/03 completed Not Available Not Available Not Available Viagra 07/03 completed Not Available Not Available Not Available rosuvastatin active Not Available Not Available Not Available Vitals Date Recorded Body height Body mass index (BMI) Body weight Provider Name and Address Organization Details Last Updated DateTime 08/15/2024 180.34 cm 33.8 kg/m2 154174.35 g Nisha Key [facility] 08/15/2024 14:00:42 Date Recorded Body height Body mass index (BMI) Body weight Provider Name and Address Organization Details Last Updated DateTime 09/05/2024 180.34 cm 32.4 kg/m2 335496.43 g Galina Gerardo [facility] 09/05/2024 15:36:07 Date Recorded Body height Body mass index (BMI) Body weight Provider Name and Address Organization Details Last Updated DateTime 09/11/2024 180.34 cm 32.4 kg/m2 332420.43 g Nishalaura Key [facility] 09/11/2024 14:01:51 Date Recorded Body height Body mass index (BMI) Body weight Provider Name and Address Organization Details Last Updated DateTime 01/02/2025 180.34 cm 32.4 kg/m2 632887.43 g Nisha Key [facility] 01/02/2025 14:58:26 Social History Question Answer Notes LastModified by Organizat ion Details LastModified Time Tobacco Smoking Status Never Smoker Lorri Upton kaye [facility] 04/23/2022 14:17:29 Sunscreen Use? Yes [email or web address] Informatio n not available 03/28/2024 Tanning Bed Use No [email or web address] Informati on not available 03/28/2024 What Was The Date Of Your Most Recent Tobacco Screening? 09/05/2024 [email or web address] Information not available 09/05/2024 What Is Your Relationship Status? [email or web address] Information not available 04/23/2022 Sex: Male Functional Status Question Answer Note LastModified by Organization D etails LastModified Time What is your level of alcohol consumption? None [email or web address] Information not available 04/23/2022 Mental Status None recorded. Family History Relationship Description Onset Age of this Age Resolved Age Notes LastModified by Organization Details LastModified Time Father No current problems or disability [email or web address] Not available 04/23 14:17:22 Mother No current problems or disability [email or web address] Not available 04/23 14:17:22 Medical History Condition Response Kidney Stones Y Autoimmune disease N Skin Cancer N High Cholesterol Y Immunizations Vaccine Type Date Status Note Provider Nam e and Address Organization Details Recorded Time Td (adult), 2 Lf tetanus toxoid, preservative free, adsorbed 7 completed Not Available [facility] 01/02/2025 14:05:25 pneumococcal polysaccharide PPV23 7 completed Not Available [facility] 01/02/2025 14:05:25 Tdap 7 completed Not Available [facility] 01/02/2025 14:05:25 Influenza, high-dose, trivalent, PF 7 completed Not Available [facility] 01/02/2025 14:05:25 Pneumococcal conjugate PCV 13 8 completed Not Available [email or web address] 01/02/2025 14:05:25 Influenza, high-dose, trivalent, PF 8 completed Not Available [facility] 01/02/2025 14:05:25 Influenza, high-dose, trivalent, PF 9 completed Not Available [facility] 01/02/2025 14:05:25 zoster live 9 completed Not Available [facility] 01/02/2025 14:05:25 Influenza, high-dose, trivalent, PF 0 completed Not Available [facility] 01/02/2025 14:05:25 COVID-19, mRNA, LNP-S, PF, 100 mcg/0.5mL dose or 50 mcg/0.25mL dose 1 completed Not Available [facility] 01/02/2025 14:05:25 COVID-19, mRNA, LNP-S, PF, 100 mcg/0.5mL dose or 50 mcg/0.25mL dose 1 completed Not Available [facility] 01/02/2025 14:05:25 Influenza, high-dose, quadrivalent, PF 1 completed Not Available [facility] 01/02/2025 14:05:25 COVID-19, mRNA, LNP-S, PF, 100 mcg/0.5mL dose or 50 mcg/0.25mL dose 1 completed Not Available [facility] 01/02/2025 14:05:25 COVID-19, mRNA, LNP-S, bivalent, PF, 50 mcg/0.5 mL or 25mcg/0.25 mL dose 2 completed Not Available [facility] 01/02/2025 14:05:25 Influenza, high-dose, trivalent, PF 2 completed Not Available [facility] 01/02/2025 14:05:25 Influenza, high-dose, quadrivalent, PF 3 completed Not Available [facility] 01/02/2025 14:05:25 COVID-19, mRNA, LNP-S, PF, 50 mcg/0.5 mL 3 completed Not Available [facility] 01/02/2025 14:05:25 Influenza, high-dose, trivalent, PF 4 completed Not Available [facility] 01/02/2025 14:05:25 COVID-19, mRNA, LNP-S, PF, 50 mcg/0.5 mL 4 completed Not Available [facility] 01/02/2025 14:05:25 Past Encounters Encounter ID Performer Location Encounter Start Date Encounter Closed Date Diagnosis/Indication Diagnosis SNOMED-CT Code Diagnosis ICD10 Code Diagnosis IMO Codes Diagnosis Note [id number] MD MANOHAR ANDREWS [facility] [address] [address] 04/23/2022 13:22:02 04/23/2022 17:18:38 Prostate specific antigen above reference range 627791392 R97.20 I suggest we proceed with transrecta l ultrasound and needle biopsy of the prostate. Risks were discussed including bleeding and infection. He understand s and wishes to proceed Prostate nodule 51432072 01 61480 N40.2 As above [id number] RANJIT GALLARDO MD SURGERY SCHEDULE [address] [place] [address] 05/05/2022 08:00:20 05/05/2022 08:02:16 [id number] MD MANOHAR AND[facility]WS [facility] [address] [address] 06/04/2022 11:03:14 06/04/2022 12:36:30 Malignant neoplasm of prostate 757389440 C61 He will notify me of his decision [id number] RANJIT GALLARDO MD SURGERY SCHEDULE [address] [place] [address] 07/28/2022 06:42:42 07/28/2022 06:43:46 [id number] MD MANOHAR AND[facility]WS [facility] [address] [address] 11/24/2022 12:36:31 11/24/2022 14:08:26 Malignant neoplasm of prostate 353237694 C61 Status post CyberKnife therapy completed August 26, 2022 Secondary erectile dysfunction 021783109 N52.39 Large prostate 967043900 N40.0 [id number] MD MANOHAR ANDREWS [facility] [address] [address] 02/23/2023 12:34:29 02/23/2023 14:05:00 History of malignant neoplasm of prostate 344380568 Z85.46 Increased frequency of urination 784028796 R35.0 [id number] RANJIT GALLARDO MD [facility] [address] [address] 07/04/2023 13:50:10 07/04/2023 14:43:21 History of malignant neoplasm of prostate 053854646 Z85.46 Follow-up 3 months with PSA Increased frequency of urination 590353389 R35.0 As above [id number] RANJIT GALLARDO MD [facility]AR [facility] [address] [address] 10/04/2023 12:59:43 10/04/2023 14:39:25 Malignant neoplasm of prostate 802002100 C61 Status post CyberKnife , he will follow-up in 6 weeks with repeat PSA [id number] RANJIT GALLARDO MD [facility] [address] [address] 11/16/2023 12:59:07 11/16/2023 14:03:41 History of malignant neoplasm of prostate 018693768 Z85.46 Follow-up 3 months with PSA [id number] RANJIT GALLARDO MD [facility] [address] [address] 02/15/2024 13:15:42 02/15/2024 16:33:07 History of malignant neoplasm of prostate 648155729 Z85.46 Follow-up 6 months with PSA [id number] ALYSSA BROCK PA-C [address] [address] [address] [place] [address] 03/28/2024 13:09:36 03/28/2024 13:58:39 Multiple benign melanocytic nevi 818964666 D22.5 - Benign moles seen on exam today - SPF 30 or higher broad-spec trum sunscreen recommende d with re-applica tion every 2 hours - Discussed sun protection measures, including wide-brimm ed hat, sun-protec tive clothing, and avoidance of sun during peak hours of 10am-4pm - Avoid tanning beds as these can increase the chances of all 3 types of skin cancer - Instructed to monitor for changes and to call us for appointmen t with any changing or worrisome lesions Seborrheic keratosis 394 563388 L82.1 - Benign overgrowth s of skin - Hereditary Senile angioma 5606687 I 78.1 - Benign blood vessel growths - Hereditary Solar lentigo 70738188 L 81.4 - Benign brown spots - Sun-induce d Actinic keratosis 149907 007 L57.0 Benign condition. May wax and wane. Often hereditary and related to dry skin conditions . Recommende d pt to use OTC Gold Hernandez Rough and Bumpy skin, AmLactin lotion, or Cerave SA cream daily to help soften the rough bumps. Warned that this can burn initially and to not use it to open areas. [id number] MUNIRA RITCHIE [facility] [address] [place] [address] 05/25/2024 10:47:54 05/25/2024 10:58:20 Prostate specific antigen above reference range 329666310 R97.20 [id number] MD MANOHAR ANDREWS [facility] [address] [place] [address] 08/15/2024 13:50:36 08/15/2024 14:57:00 Malignant neoplasm of prostate 137258066 C61 47219 Status post CyberKnife , follow-up 3 months with PSA [id number] MD MANOHAR ANDREWS [facility] [address] [place] [address] 09/05/2024 14:43:18 09/05/2024 16:45:49 Recurrent malignant neoplasm of prostate 1295585966 226585 C61 [id number] Follow-up 3 months with PSA [id number] MAGDALENA ERAZO PA-C [facility] [address] [place] [address] 09/11/2024 13:39:04 09/11/2024 13:59:42 Recurrent malignant neoplasm of prostate 4957381624 665411 C61 [id number] RANJIT GALLARDO MD [facility] [address] [place] [address] 01/02/2025 14:04:58 01/02/2025 15:33:10 Malignant neoplasm of prostate 556457395 C61 21878 Status post CyberKnife , however will return for 6-month Lupron injection as previously scheduled and see me in 3 months. Health Concerns Section Related Observation LastModified by Organization Detai ls LastModified Time None Recorded Concern Status LastModified by Organization Details LastModified Time None Recorded Advance Directives Directive None Recorded Payers Insurance Date Sequence Insurance Name Policy Number Policy George Covered Member ID George Member ID Guarantor Name 03/28/2024 1 [facility] (MEDICARE REPLACEMENT/A DVANTAGE - PPO) Emely Dubon [id number] artis Dubon 03/28/2024 2 [facility] Gerald Dubon [id number] artis Dubon 03/28/2024 1 [facility] Gerald Dubon [id number] artis Dubon 12/30/2024 1 [facility] (MEDICARE REPLACEMENT/A DVANTAGE - PPO) Gerald Dubon [id number] Gerald Dubon 03/28/2024 1 [facility] (MEDICARE REPLACEMENT/A DVANTAGE - PPO) Emely Dubon [id number] artis Dubon Notes Date Note Type Note Provider Name and Address Organization Details Recorded Time 08/15/2024 text/html Patient is here in follow-up for prostate carcinoma treated with CyberKnife approximately 2 years ago. His PSA at time of treatment was 10.8. It went down as low as 3.7 in June of last year. Unfortunately his PSA has risen. September of last year was 5.8 and then down to 4.8 in October. PSA in January was 5.0. PSA today was 10.4. [place] I suggest observation for now. He has an appointment to speak with Dr. Castaneda his radiation oncologist in the near future. His urine specimen today is unremarkable. I will plan to see him back in 3 months with repeat PSA RANJIT GALLARDO MD [facility] [place], [address], [facility] 01/12/2025 21:52:12 09/05/2024 text/html Patient is here for PSA recurrence after definitive radiation therapy for prostate cancer. He was last seen by me in July or routine follow-up. He continues to take tamsulosin and oxybutynin chloride extended release 10 mg. His PSA at time of biopsy was 10.8. He had CyberKnife treatment approximately 2 years ago with the lowest PSA being 3.7 in June 2023. In January of last year his PSA was 5.0 and 10.4 had a visit with me August 15 of this year. Today's PSA was 10.7. He had seen the radiation oncologist and was referred back today with the suggestion of starting hormonal therapy. Patient has done considerable research and reading and is concerned about side effects of therapy. We discussed that certainly there are expected side effects namely hot flashes. We also discussed the possibility of fatigue and chronic muscle loss and loss of bone mass. We also discussed the potential benefits of therapy. Currently he is symptom-free. He did however have a PET scan last week which showed at least 3 areas of adenopathy consistent with metastatic disease. The prostate however was not active. I suggest that we follow his PSAs and this point postpone starting LHRH antagonist. We will see him back in 3 months with repeat PSA level. MD Karen ANDREWS[address] [place], [address], [facility] 09/06/2024 21:59:22 01/02/2025 text/html Patient is here for follow-up regarding prostate carcinoma originally treated with CyberKnife 2-1/2 years ago. His lowest PSA was 3.7 in June 2023. I saw him back in the spring and it was recommended that we consider restarting hormonal therapy by radiation oncology. His PSA at his last visit was 10.4. He has since resumed Lupron therapy. He is due for an injection in February. His PSA today was down to 0.10. He has some hot flashes but not severe. He typically has nocturia x 3. He continues to take tamsulosin but no longer oxybutynin chloride. His urine specimen today is unremarkable. Overall he he feels acceptable. He did mention some issues with fatigue. He has an appointment later this week with Dr. Castaneda. Beverly Blanco [facility] 01/04/2025 09:35:43
--- OUTSIDE RECORDS SUMMARY | 2025-02-08 07:45 | XMS_ITS | Continuity of Care Document ---
Author Organization [facility] Address [address] [place] [address] Care Team Providers Care Content Director Name Role Phone [facility] Primary Care Provider [phone] ALYSSA BROCK [employer] Stewardess Assessment No assessment recorded. Plan of Treatment Reminders Order Date Submit Date Provider Last Modified By Organization Details Last Modified Time Details Appointments SHOT ONLY 2024 01:45P M CUA_NURSE Not available Not available Not available RECHECK 2025 11:00A M RANJIT GALLARDO MD Not available Not available Not available Lab urinalysi s panel, auto [address] [facility], [address], [address], [place], [address], 01/02/2025 17:46:36 PSA, serum or plasma [email or web address] [facility], [address], [address], [place], [address], 01/02/2025 17:46:36 Referral None recorded. Procedures None recorded. Surgeries None recorded. Imaging None recorded. Medication Orders None recorded. Patient TargetsNo targets recorded. Patient InstructionsNo instructions recorded. Reason for Referral None Reported. Results Created Date Observation Date Name Description Value Unit Range Abnormal Flag Note LastModifiedBy Organization Detail LastModifiedTime 01/03/2001/02/2025 PSA, serum or plasm a PSA 0.10 NG/mL 0.0 - 4.0 Not Available [facility] [address], [place], [address], 01/02/2025 15:15:30 01/03/2001/02/2025 urina lysis panel , auto Unknown Analyte Clean Catch Not Available [facility] [address], [place], [address], 01/02/2025 14:59:10 01/03/2001/02/2025 urina lysis panel , auto Unknown Analyte Yellow Not Available [facility] [address], [place], [address], 01/02/2025 14:59:10 01/03/2001/02/2025 urina lysis panel , auto Unknown Analyte Clear Not Available [facility] [address], [place], [address], 01/02/2025 14:59:10 01/03/20 25 01/02/2025 urina lysis panel , auto Unknown Analyte 1.025 Not Available [facility] [address], [place], [address], 01/02/2025 14:59:10 01/03/20 25 01/02/2025 urina lysis panel , auto Unknown Analyte 1.003 - 1.030 Not Available [facility] [address], [place], [address], 01/02/2025 14:59:10 09/02/11 2501/02/2025 urina lysis panel , auto Unknown Analyte 5.0 Not Available [facility] [address], [place], [address], 01/02/2025 14:59:10 01/03/20 25 01/02/2025 urina lysis panel , auto Unknown Analyte 5.0 - 8.0 Not Available [facility] [address], [place], [address], 01/02/2025 14:59:10 01/03/2001/02/2025 urina lysis panel , auto Unknown Analyte Negati ve Not Available [facility] [address], [place], [address], 01/02/2025 14:59:10 01/03/2001/02/2025 urina lysis panel , auto Unknown Analyte Negati ve Not Available [facility] [address], [place], [address], 01/02/2025 14:59:10 01/03/20 25 01/02/2025 urina lysis panel , auto Unknown Analyte Negati ve Not Available [facility] [address], [place], [address], 01/02/2025 14:59:10 01/03/2001/02/2025 urina lysis panel , auto Unknown Analyte Negati ve Not Available [facility] [address], [place], [address], 01/02/2025 14:59:10 01/03/2001/02/2025 urina lysis panel , auto Unknown Analyte Negati ve Not Available [facility] [address], [place], [address], 01/02/2025 14:59:10 01/03/20 25 01/02/2025 urina lysis panel , auto Unknown Analyte Negati ve Not Available [facility] [address], [place], [address], 01/02/2025 14:59:10 01/03/2001/02/2025 urina lysis panel , auto Unknown Analyte Normal Not Available [facility] [address], [place], [address], 01/02/2025 14:59:10 01/03/2001/02/2025 urina lysis panel , auto Unknown Analyte Normal Not Available [facility] [address], [place], [address], 01/02/2025 14:59:10 01/03/2001/02/2025 urina lysis panel , auto Unknown Analyte Negati ve Not Available [facility] [address], [place], [address], 01/02/2025 14:59:10 01/03/2001/02/2025 urina lysis panel , auto Unknown Analyte Negati ve Not Available [facility] [address], [place], [address], 01/02/2025 14:59:10 01/03/20 25 01/02/2025 urina lysis panel , auto Unknown Analyte Normal Not Available [facility] [address], [place], [address], 01/02/2025 14:59:10 01/03/20 25 01/02/2025 urina lysis panel , auto Unknown Analyte Normal Not Available [facility] [address], [place], [address], 01/02/2025 14:59:10 01/03/20 25 01/02/2025 urina lysis panel , auto Unknown Analyte Negati ve Not Available [facility] [address], [place], [address], 01/02/2025 14:59:10 01/03/20 25 01/02/2025 urina lysis panel , auto Unknown Analyte Negati ve Not Available [facility] [address], [place], [address], 01/02/2025 14:59:10 01/03/20 25 01/02/2025 urina lysis panel , auto Unknown Analyte Negati ve Not Available [facility] [address], [place], [address], 01/02/2025 14:59:10 01/03/20 25 01/02/2025 urina lysis panel , auto Unknown Analyte Negati ve Not Available [facility] [address], [place], [address], 01/02/2025 14:59:10 Result Notes None recorded. Problems Name Problem SNOMED Code Status Onset Date Resolution Date Notes Provider Name and Address Organization Details Recorded Time Actinic keratosis 459337030 Active 024 Lupis restrepo [facility] 13:51:28 Problem Notes None recorded. Procedures Surgical History Date Name Laterality Status Provider Name and Address Organization Details Recorded Time 09/12/19 25 Lupron Administration completed Nisha Key [facility] 09/11/2024 14:03:17 03/28/20 24 DAK - Cryo [place] completed Lupisrolando Del Rio [facility] 03/28/2024 13:52:19 04/25/19 22 colonoscopy completed Lorri Won [facility] 04/23/2022 14:17:49 04/25/19 18 Kidney Stone Removal completed Lorri Upton [facility] 04/23/2022 14:18:00 04/25/19 06 procedure on hand completed Lorri Won [facility] 04/23/2022 14:18:15 Back Surgery completed Conor Kelley [facility] 03/28/2024 13:33:18 Imaging Results None recorded. Procedure [...] Updated DateTime 01/02/2025 180.34 cm 32.4 kg/m2 177929.43 g Nisha Key [facility] 01/02/2025 14:58:26 Social History Question Answer Notes LastModified by Organizat ion Details LastModified Time Tobacco Smoking Status Never Smoker Lorri Upton [facility] 04/23/2022 14:17:29 Sunscreen Use? Yes [email or web address] Informatio n not available 03/28/2024 Tanning Bed Use No [email or web address] Informati on not available 03/28/2024 What Was The Date Of Your Most Recent Tobacco Screening? 09/05/2024 [email or web address] Information not available 09/05/2024 What Is Your Relationship Status? [email or web address] Information not available 04/23/2022 Sex: Male Functional Status Question Answer Note LastModified by Organization D etails LastModified Time What is your level of alcohol consumption? None [email or web address] Information not available 04/23/2022 Mental Status None recorded. Family History Relationship Description Onset Age of this Age Resolved Age Notes LastModified by Organization Details LastModified Time Father No current problems or disability [email or web address] Not available 04/23 14:17:22 Mother No current problems or disability [email or web address] Not available 04/23 14:17:22 Medical History Condition Response Kidney Stones Y Autoimmune disease N Skin Cancer N High Cholesterol Y Immunizations Vaccine Type Date Status Note Provider Nam e and Address Organization Details Recorded Time Td (adult), 2 Lf tetanus toxoid, preservative free, adsorbed 7 completed Not Available [facility] 01/02/2025 14:05:25 pneumococcal polysaccharide PPV23 7 completed Not Available [facility] 01/02/2025 14:05:25 Tdap 7 completed Not Available [facility] 01/02/2025 14:05:25 Influenza, high-dose, trivalent, PF 7 completed Not Available [facility] 01/02/2025 14:05:25 Pneumococcal conjugate PCV 13 8 completed Not Available [facility] 01/02/2025 14:05:25 Influenza, high-dose, trivalent, PF 8 completed Not Available [facility] 01/02/2025 14:05:25 Influenza, high-dose, trivalent, PF 9 completed Not Available [facility] 01/02/2025 14:05:25 zoster live 9 completed Not Available [facility] 01/02/2025 14:05:25 Influenza, high-dose, trivalent, PF 0 completed Not Available [facility] 01/02/2025 14:05:25 COVID-19, mRNA, LNP-S, PF, 100 mcg/0.5mL dose or 50 mcg/0.25mL dose 1 completed Not Available [facility] 01/02/2025 14:05:25 COVID-19, mRNA, LNP-S, PF, 100 mcg/0.5mL dose or 50 mcg/0.25mL dose 1 completed Not Available [facility] 01/02/2025 14:05:25 Influenza, high-dose, quadrivalent, PF 1 completed Not Available [facility] 01/02/2025 14:05:25 COVID-19, mRNA, LNP-S, PF, 100 mcg/0.5mL dose or 50 mcg/0.25mL dose 1 completed Not Available [facility] 01/02/2025 14:05:25 COVID-19, mRNA, LNP-S, bivalent, PF, 50 mcg/0.5 mL or 25mcg/0.25 mL dose 2 completed Not Available [facility] 01/02/2025 14:05:25 Influenza, high-dose, trivalent, PF 2 completed Not Available [facility] 01/02/2025 14:05:25 Influenza, high-dose, quadrivalent, PF 3 completed Not Available [facility] 01/02/2025 14:05:25 COVID-19, mRNA, LNP-S, PF, 50 mcg/0.5 mL 3 completed Not Available [facility] 01/02/2025 14:05:25 Influenza, high-dose, trivalent, PF 4 completed Not Available [facility] 01/02/2025 14:05:25 COVID-19, mRNA, LNP-S, PF, 50 mcg/0.5 mL 4 completed Not Available [facility] 01/02/2025 14:05:25 Past Encounters Encounter ID Performer Location Encounter Start Date Encounter Closed Date Diagnosis/Indication Diagnosis SNOMED-CT Code Diagnosis ICD10 Code Diagnosis IMO Codes Diagnosis Note [id number] RANJIT GALLARDO MD [facility] [address] [place] [address] 01/02/2025 14:04:58 01/02/2025 15:33:10 Malignant neoplasm of prostate [id number] Status post CyberKnife , however will return for 6-month Lupron injection as previously scheduled and see me in 3 months. Health Concerns Section Related Observation LastModified by Organization Detai ls LastModified Time None Recorded Concern Status LastModified by Organization Details LastModified Time None Recorded Payers Encounter Date Sequence Insurance Name Policy Number Policy George Covered Member ID George Member ID Guarantor Name 01/02/2025 1 [employer] (MEDICARE REPLACEMENT/ ADVANTAGE - PPO) Gerald Dubon [id number] Gerald Hrut Dubon Notes Date Note Type Note Provider Name and Address Organization Details Recorded Time 01/02/2025 text/html Patient is here for follow-up [...] this week with Dr. Castaneda. Beverly Blanco [facility] 01/04/2025 09:35:43
--- NOTE | 2025-02-08 08:00 | CT_ITS ---
FINAL REPORT TECHNIQUE: Thin section axial images were obtained from the thoracic inlet through the upper abdomen after intravenous contrast injection. Reconstruction images were obtained from the axial data. Exam was performed using dose reduction technique. This study was performed with techniques to keep radiation doses as low as reasonably achievable (ALARA). Individualized dose reduction techniques using automated exposure control or adjustment of mA and/or kV according to the patient's size were employed. CLINICAL HISTORY: SOBOE, right lung rhonchi, abnormal CXR COMPARISON: None FINDINGS: There is no mediastinal, hilar, or axillary lymphadenopathy. There is no pleural or pericardial effusion. The heart is normal in size. There is elevation of the right hemidiaphragm, favor chronic. Changes of emphysema are noted. There is bronchiectasis in the lower lobes, greater on the right than on the left, as well as ground glass opacities in the lower lobes, greater on the right than on the left. Favor atelectasis, though pneumonia is not excluded. There is a 6 mm right lower lobe nodule present, best seen on image #49 of series 2. Otherwise the lungs are clear without evidence of consolidation. Limited evaluation of the upper abdomen is without acute abnormality. No acute osseous abnormality. IMPRESSION: 1. Elevation of the right hemidiaphragm, favor chronic. 2. Changes of bronchiectasis in the lower lobes, greater on the right than on the left, as well as ground glass opacities with the same distribution. Favor that these represent atelectasis although infection or inflammatory changes not excluded. 3. 6 mm right lower lobe nodule as described. Follow-up is suggested. Reviewed, Interpreted and Dictated by Sharon Wyman MD Transcribed by Tamie Upton Authenticated and [facility]
[2025-02-08] MEDS: SODIUM CHLORIDE 0.9% 10ML SYR (RAD ONLY) 10 ML IV (08:07)
[2025-02-08] MEDS: IOPAMIDOL-370 (76%);100ML BOTTLE 75 ML IV (08:07)
== END 2025-02-08 23:59 | disposition home or self-care (01) ==
PROVIDERS: PCP Nurse Practitioner; Visit Provider Nurse Practitioner
DX: J47.9 Bronchiectasis, uncomplicated (principal); J98.6 Disorders of diaphragm; R91.1 Solitary pulmonary nodule; R91.8 Other nonspecific abnormal finding of lung field; R09.89 Other specified symptoms and signs involving the circulatory and respiratory systems
CPT/HCPCS: 71260; Q9967